=== PATIENT | female | born 1935 | race Hispanic/Latino ===

== ENCOUNTER 2021-02-28 14:15 | Inpatient (IN) | payer MEDICARE ==
--- NOTE | 2021-02-28 14:23 | Emergency Department Report ---
HPI - General Chief Complaint: Abdominal Pain Time Seen by Provider: 02/28/21 14:20 - HPI HPI: This is an 85-year-old female presents to the emergency department from her [facility] with a complaint of a 4-day history of abdominal pain, some abdominal distention, and no bowel movement. The patient has a past medical history of CKD stage III and advanced Alzheimer's dementia. Apparently the patient's family was contacted, they are out of town, and they asked for the patient to be brought to [facility] for evaluation. The patient has avel barba been here previously. Unknown if there were any medications or treatments given prior to arrival. ED Past Medical Hx - Past Medical History Previous Medical History?: Yes Hx Renal Disease: Yes Hx Psychiatric Treatment: Yes Hx Dementia: Yes ED Review of Systems ROS: Stated complaint: ABDOMIANL PAIN Other details as noted in HPI Comment: Unobtainable due to pts medical conditions Physical Exam - Physical Exam Vital Signs: Vital Signs 02/28/21 14:18 Pulse Rate 68 Respiratory 16 Rate Blood Pressure 170/84 [Right] O2 Sat by Pulse 98 Oximetry Physical Exam: GENERAL: The patient is well-developed well-nourished. HENT: Normocephalic. Atraumatic. Patient has moist mucous membranes. EYES: Extraocular motions are intact. NECK: Supple. Trachea is midline. CHEST/LUNGS: Clear to auscultation. There is no respiratory distress noted. HEART/CARDIOVASCULAR: Regular. There is no tachycardia. There is no murmur. ABDOMEN: The middle to lower half of the abdomen is firm, but not rigid, but there is some distention. Patient has normal bowel sounds. SKIN: Skin is warm and dry. NEURO: The patient is mostly nonverbal and confused. MUSCULOSKELETAL: There is no obvious deformity. ED Course Vital Signs 02/28/21 14:18 Pulse Rate 68 Respiratory 16 Rate Blood Pressure 170/84 [Right] O2 Sat by Pulse 98 Oximetry ED Medical Decision Making - Lab Data Result diagrams: 02/28/21 14:23 02/28/21 14:23 Lab Results 02/28/21 02/28/21 02/28/21 Range/Units 14:23 14:23 14:23 WBC 9.9 (4.5-11.0) K/mm3 RBC 3.74 (3.65-5.03) M/mm3 Hgb 12.3 (10.1-14.3) gm/dl Hct 35.8 (30.3-42.9) % MCV 96 (79-97) fl MCH 33 H (28-32) pg MCHC 34 (30-34) % RDW 16.5 H (13.2-15.2) % Plt Count 277 (140-440) K/mm3 Lymph % (Auto) 15.5 (13.4-35.0) % Woods % (Auto) 10.1 H (0.0-7.3) % Eos % (Auto) 1.7 (0.0-4.3) % Baso % (Auto) 0.2 (0.0-1.8) % Lymph # (Auto) 1.5 (1.2-5.4) K/mm3 Woods # (Auto) 1.0 H (0.0-0.8) K/mm3 Eos # (Auto) 0.2 (0.0-0.4) K/mm3 Baso # (Auto) 0.0 (0.0-0.1) K/mm3 Seg Neutrophils % 72.5 H (40.0-70.0) % Seg Neutrophils # 7.2 (1.8-7.7) K/mm3 Sodium 136 L (137-145) mmol/L Potassium 2.3 L* (3.6-5.0) mmol/L Chloride 95.6 L (98-107) mmol/L Carbon Dioxide 25 (22-30) mmol/L Anion Gap 18 mmol/L BUN 40 H (7-17) mg/dL Creatinine 2.7 H (0.6-1.2) mg/dL Estimated GFR 17 ml/min BUN/Creatinine Ratio 15 % Glucose 114 H (65-100) mg/dL Calcium 9.3 (8.4-10.2) mg/dL Magnesium 2.10 (1.7-2.3) mg/dL Total Bilirubin 0.60 (0.1-1.2) mg/dL Direct Bilirubin 0.2 (0-0.2) mg/dL Indirect Bilirubin 0.4 mg/dL AST 21 (5-40) units/L ALT 11 (7-56) units/L Alkaline Phosphatase 93 (35-129) units/L Total Protein 6.6 (6.3-8.2) g/dL Albumin 3.3 L (3.9-5) g/dL Albumin/Globulin Ratio 1.0 % Lipase 47 (13-60) units/L - EKG Data -: EKG Interpreted by Me EKG shows normal: sinus rhythm, axis (Left axis deviation), intervals, QRS complexes (Q waves to the septal leads, LVH), ST-T waves Rate: normal - EKG Data When compared to previous EKG there are: previous EKG unavailable Interpretation: other (Sinus rhythm at 72 bpm, left axis deviation, Q waves to the septal leads, LVH. No ST elevation OH.) - Radiology Data Radiology results: report reviewed, image reviewed interpreted by me: Chest x-ray does not show any acute process. There are no pleural effusions, obvious pneumonia and there is no pneumothorax. No widened mediastinum. Abdominal x-ray shows a large amount of stool with some possible fecal impaction. No obvious signs of obstruction. No free air. CT ABDOMEN AND PELVIS WITHOUT CONTRAST INDICATION / CLINICAL INFORMATION: Abd pain. TECHNIQUE: Axial CT images were obtained through the abdomen and pelvis without IV contrast. All CT scans at this location are performed using CT dose reduction for ALARA by means of automated exposure control. COMPARISON: None available. FINDINGS: LOWER CHEST: Bibasilar atelectasis. LIVER: No significant abnormality. GALLBLADDER: No significant abnormality. BILE DUCTS: No significant abnormality. PANCREAS: No significant abnormality. SPLEEN: No significant abnormality. ADRENALS: No significant abnormality. RIGHT KIDNEY / URETER: No significant abnormality. LEFT KIDNEY / URETER: No significant abnormality. STOMACH / SMALL BOWEL: No significant abnormality. COLON: Large volume colonic stool diffusely with fecal impaction. There is mild associated symmetric rectal thickening distally. APPENDIX: Nonvisualized. PERITONEUM: No free fluid. No free air. No fluid collection. LYMPH NODES: No significant adenopathy. VASCULAR STRUCTURES: Moderate atherosclerotic vascular calcification. URINARY BLADDER: Prominent distention. REPRODUCTIVE ORGANS: No significant abnormality. ADDITIONAL FINDINGS: None. SKELETAL SYSTEM: No significant abnormality. IMPRESSION: 1. Constipation with fecal impaction and superimposed rectal thickening. 2. Prominent bladder distention. - Medical Decision Making This patient, with advanced dementia, was sent in from her personal [facility] for evaluation of abdominal distention and no bowel movement over the past 4 days. The mid to lower abdomen is firm, but not rigid, but there is some distention. Abdominal x-ray shows a large amount of stool and a possible fecal impaction, but no obvious signs of obstruction. Chest x-ray does not show any pneumonia, pleural effusions, pneumothorax, widened mediastinum. Patient had a CT scan of the abdomen and pelvis without contrast that shows a large amount of stool, possible rectal fecal impaction, and a distended bladder. Patient's labs shows significant hyperkalemia with a potassium of 2.3. The patient has been given both oral and IV potassium for replacement. A Herrera catheter was placed for the bladder distention. However, prior to the catheter placement the patient did urinate on the bed in a large quantity, which does appear consistent with some urinary retention, but we do not yet have a urine sample for urinalysis. The patient will be admitted to the hospital for further evaluation and treatment and was accepted for admission by the hospitalist, Dr. William. Critical Care Time: No Critical care attestation.: If time is entered above; I have spent that time in minutes in the direct care of this critically ill patient, excluding procedure time. ED Disposition Clinical Impression: Hypokalemia, Fecal impaction Hypertension Qualifiers: Hypertension type: essential hypertension Qualified Code(s): I10 - Essential (primary) hypertension CKD (chronic kidney disease) Qualifiers: Chronic kidney disease stage: stage 4 (severe) Qualified Code(s): N18.4 - Chronic kidney disease, stage 4 (severe) Disposition: OP ADMIT IP TO THIS HOSP Is pt being admited?: Yes Condition: Fair Time of Disposition: 16:45
[2021-02-28 14:31] LABS: Basophils % (Auto) 0.2 % (0.0-1.8); Eosinophils # (Auto) 0.2 K/mm3 (0.0-0.4); Eosinophils % (Auto) 1.7 % (0.0-4.3); Hematocrit 35.8 % (30.3-42.9); Hemoglobin 12.3 gm/dl (10.1-14.3); Lymphocytes # (Auto) 1.5 K/mm3 (1.2-5.4); Lymphocytes % (Auto) 15.5 % (13.4-35.0); Mean Corpuscular HGB Conc 34 % (30-34); Mean Corpuscular Volume 96 fl (79-97); Monocytes % (Auto) 10.1 % (0.0-7.3); Platelet Count 277 K/mm3 (140-440); Red Blood Count 3.74 M/mm3 (3.65-5.03); Red Cell Distribution Width 16.5 % (13.2-15.2)
[2021-02-28 14:57] LABS: Albumin 3.3 g/dL (3.9-5); Bilirubin,Direct 0.2 mg/dL (0-0.2); Calcium 9.3 mg/dL (8.4-10.2)
--- NOTE | 2021-02-28 15:10 | XRay Report ---
CHEST AND ABDOMINAL SERIES HISTORY: Abdominal pain. Chest one view: Heart size is normal. A pacemaker is in satisfactory position. Negative for mass, inf iltrate or pleural fluid. Two-view abdomen: Gas is scattered throughout the abdomen in a nonobstructive fashion. Overall large volume stool with probable fecal impaction. Previous screw placement right femoral neck. Signer Name: Benjy Rincon MD Signed: 02/28/2021 3:06 PM Workstation Name: [email or web address]
[2021-02-28] MEDS ORDERED: POTASSIUM CHLORIDE ER 20 MEQ TAB PO ONE ×2 (15:11→20:32)
[2021-02-28] MEDS ORDERED: SODIUM CHLORIDE 0.9% 1000 ML 1,000 ML IV ONE (15:11)
--- NOTE | 2021-02-28 16:25 | Cat Scan Report ---
CT ABDOMEN AND PELVIS WITHOUT CONTRAST INDICATION / CLINICAL INFORMATION: Abd pain. TECHNIQUE: Axial CT images were obtained through the abdomen and pelvis without IV contrast. All CT scans at this location are performed using CT dose reduction for ALARA by means of automated exposure control. COMPARISON: None available. FINDINGS: LOWER CHEST: Bibasilar atelectasis. LIVER: No significant abnormality. GALLBLADDER: No significant abnormality. BILE DUCTS: No significant abnormality. PANCREAS: No significant abnormality. SPLEEN: No significant abnormality. ADRENALS: No significant abnormality. RIGHT KIDNEY / URETER: No significant abnormality. LEFT KIDNEY / URETER: No significant abnormality. STOMACH / SMALL BOWEL: No significant abnormality. COLON: Large volume colonic stool diffusely with fecal impaction. There is mild associated symmetric rectal thickening distally. APPENDIX: Nonvisualized. PERITONEUM: No free fluid. No free air. No fluid collection. LYMPH NODES: No significant adenopathy. VASCULAR STRUCTURES: Moderate atherosclerotic vascular calcification. URINARY BLADDER: Prominent distention. REPRODUCTIVE ORGANS: No significant abnormality. ADDITIONAL FINDINGS: None. SKELETAL SYSTEM: No significant abnormality. IMPRESSION: 1. Constipation with fecal impaction and superimposed rectal thickening. 2. Prominent bladder distention. Signer Name: Benjy Rincon MD Signed: 02/28/2021 4:21 PM Workstation Name: [email or web address]
[2021-02-28] MEDS ORDERED: LORazepam 2 MG/ML VIAL IV ONE (16:47)
[2021-02-28] MEDS: POTASSIUM CHLORIDE 10 MEQ 10 MEQ/100 ML BAG IV SCH ×2 (18:06→20:40)
[2021-02-28] MEDS ORDERED: POTASSIUM CHLORIDE 10 MEQ 10 MEQ/100 ML BAG IV ONE (20:31)
[2021-03-01] MEDS ORDERED: METOCLOPRAMIDE 10 MG/2 ML INJ IV PRN (00:32)
[2021-03-01] MEDS ORDERED: MORPHINE 2 MG/1 ML INJ IV PRN (00:32)
[2021-03-01] MEDS ORDERED: ACETAMINOPHEN 325 MG TAB PO PRN (00:32)
[2021-03-01] MEDS ORDERED: ONDANSETRON 4 MG/2 ML INJ IV PRN (00:32)
--- NOTE | 2021-03-01 00:48 | History and Physical Report ---
History of Present Illness Date of examination: 02/28/21 Date of admission: 02/28/21 16:46 Chief complaint: Abdominal pain for 1 day History of present illness: 85-year-old female with past medical history of chronic kidney disease, advanced dementia sent from personal residential for evaluation. Patient has 4-day history of abdominal distention and no bowel movement. In the emergency room patient had a potassium of 2.3 and elevated creatinine consistent with TAISHA/CKD. No fever or chills. No exposure to coronavirus. Review of Systems ROS: Constitutional advanced dementia HEENT no sore throat no post nasal drip no diplopia Neck no neck stiffness no lymph gland enlargement Chest and lungs no shortness of breath cough or wheezing CVS no chest pain no diaphoresis no palpitations GI abdominal pain and no bowel movement for 4 days Genitourinary system no dysuria no flank pain Musculoskeletal system no muscle pains no joint pains [employer] advanced dementia Skin no rash no itching Psychiatric no depression no homicidal or suicidal tendencies Hematologic no lymphedema or bruising Endocrine no polydipsia no polyuria no cold intolerance no heat intolerance Past History Past Medical History: hypertension, other (Advanced dementia, vascular dementia) Past Surgical History: Other (Surgical history not available) Social history: full code, other (Lives in personal residential) Family history: hypertension Medications and Allergies Allergies Allergy/AdvReac Type Severity Reaction Status Date / Time No Known Allergies Allergy Unverified 02/28/21 14:19 Exam - Constitutional Vitals: Temp Pulse Resp BP Pulse Ox 98.6 F 71 20 168/85 97 02/28/21 22:00 02/28/21 22:00 02/28/21 22:00 02/28/21 22:00 02/28/21 22:00 General appearance: Present: no acute distress, well-nourished - EENT Eyes: Present: PERRL ENT: hearing intact, clear oral mucosa - Neck Neck: Present: supple, normal ROM - Respiratory Respiratory effort: normal Respiratory: bilateral: CTA - Cardiovascular Heart rate: 78 Rhythm: regular Heart Sounds: Present: S1 & S2. Absent: rub, click - Extremities Extremities: pulses symmetrical, No edema Peripheral Pulses: within normal limits - Abdominal General gastrointestinal: Present: soft, tender, distended, normal bowel sounds Localized gastrointestinal: tender: diffuse Female genitourinary: Present: normal - Integumentary Integumentary: Present: clear, warm, dry - Musculoskeletal Musculoskeletal: generalized weakness - Psychiatric Psychiatric: other (Advanced dementia) - Neurologic Neurologic: CNII-XII intact, moves all extremities, other (Advanced dementia alert but not oriented to time place and person) - Allied Health Allied health notes reviewed: nursing, case management Results - Labs CBC & Chem 7: 03/01/21 03:21 03/01/21 03:21 Labs: Laboratory Last Values WBC 9.9 K/mm3 (4.5-11.0) 02/28/21 14:23 RBC 3.74 M/mm3 (3.65-5.03) 02/28/21 14:23 Hgb 12.3 gm/dl (10.1-14.3) 02/28/21 14:23 Hct 35.8 % (30.3-42.9) 02/28/21 14:23 MCV 96 fl (79-97) 02/28/21 14:23 MCH 33 pg (28-32) H 02/28/21 14:23 MCHC 34 % (30-34) 02/28/21 14:23 RDW 16.5 % (13.2-15.2) H 02/28/21 14:23 Plt Count 277 K/mm3 (140-440) 02/28/21 14:23 Lymph % (Auto) 15.5 % (13.4-35.0) 02/28/21 14:23 Jennings % (Auto) 10.1 % (0.0-7.3) H 02/28/21 14:23 Eos % (Auto) 1.7 % (0.0-4.3) 02/28/21 14:23 Baso % (Auto) 0.2 % (0.0-1.8) 02/28/21 14:23 Lymph # (Auto) 1.5 K/mm3 (1.2-5.4) 02/28/21 14:23 Jennings # (Auto) 1.0 K/mm3 (0.0-0.8) H 02/28/21 14:23 Eos # (Auto) 0.2 K/mm3 (0.0-0.4) 02/28/21 14:23 Baso # (Auto) 0.0 K/mm3 (0.0-0.1) 02/28/21 14:23 Seg Neutrophils % 72.5 % (40.0-70.0) H 02/28/21 14:23 Seg Neutrophils # 7.2 K/mm3 (1.8-7.7) 02/28/21 14:23 Sodium 136 mmol/L (137-145) L 02/28/21 14:23 Potassium 2.3 mmol/L (3.6-5.0) L* 02/28/21 14:23 Chloride 95.6 mmol/L (98-107) L 02/28/21 14:23 Carbon Dioxide 25 mmol/L (22-30) 02/28/21 14:23 Anion Gap 18 mmol/L 02/28/21 14:23 BUN 40 mg/dL (7-17) H 02/28/21 14:23 Creatinine 2.7 mg/dL (0.6-1.2) H 02/28/21 14:23 Estimated GFR 17 ml/min 02/28/21 14:23 BUN/Creatinine Ratio 15 % 02/28/21 14:23 Glucose 114 mg/dL (65-100) H 02/28/21 14:23 Calcium 9.3 mg/dL (8.4-10.2) 02/28/21 14:23 Magnesium 2.10 mg/dL (1.7-2.3) 02/28/21 14:23 Total Bilirubin 0.60 mg/dL (0.1-1.2) 02/28/21 14:23 Direct Bilirubin 0.2 mg/dL (0-0.2) 02/28/21 14:23 Indirect Bilirubin 0.4 mg/dL 02/28/21 14:23 AST 21 units/L (5-40) 02/28/21 14:23 ALT 11 units/L (7-56) 02/28/21 14:23 Alkaline Phosphatase 93 units/L (35-129) 02/28/21 14:23 Total Protein 6.6 g/dL (6.3-8.2) 02/28/21 14:23 Albumin 3.3 g/dL (3.9-5) L 02/28/21 14:23 Albumin/Globulin Ratio 1.0 % 02/28/21 14:23 Lipase 47 units/L (13-60) 02/28/21 14:23 - Imaging and Cardiology Imaging and Cardiology: Abdomen the pelvis CT Constipation with fecal impaction and superimposed rectal thickening Prominent bladder thickening distention Assessment and Plan Advance Directives: Yes - Patient Problems (1) Hypokalemia Current Visit: Yes Status: Acute Plan to address problem: IV potassium and oral potassium initiated Recheck potassium levels No home medications on the chart Baby diuretic induced hypokalemia (2) TAISHA (acute kidney injury) Current Visit: Yes Status: Acute Plan to address problem: Possible TAISHA superimposed on CKD Renal ultrasound requested Patient initiated on IV fluids Nephrology consult requested (3) Fecal impaction Current Visit: Yes Status: Acute Plan to address problem: Lactulose initiated Enema if necessary (4) Vascular dementia Current Visit: Yes Status: Chronic Qualifiers: Dementia behavioral disturbance: without behavioral disturbance Qualified Code(s): F01.50 - Vascular dementia without behavioral disturbance Plan to address problem: Advanced Supportive care (5) DVT prophylaxis Current Visit: Yes Status: Acute Plan to address problem: On heparin and GI prophylaxis
[2021-03-01] MEDS ORDERED: VALSARTAN 40 MG TAB PO SCH (01:00)
[2021-03-01] MEDS: D5W/0.9% NACL 1,000 ML IV SCH ×2 (01:42→21:56)
[2021-03-01] MEDS: POTASSIUM CHLORIDE 10 MEQ 10 MEQ/100 ML BAG IV SCH ×7 (01:44→16:21)
[2021-03-01] MEDS: POTASSIUM CHLORIDE ER 20 MEQ TAB PO SCH ×3 (01:53→09:47)
[2021-03-01] MEDS: carvediloL 6.25 MG TAB PO SCH ×3 (01:53→20:39)
[2021-03-01] MEDS ORDERED: LACTULOSE 20 GM/30 ML ORAL LIQD PO PRN (02:00)
[2021-03-01 03:13] LABS: Bilirubin,Urine NEG (Negative); Blood,Urine MOD (Negative); Color,Urine Yellow (Yellow); Mucus,Urine FEW /HPF; Protein,Urine <15 mg/dL mg/dL (Negative); WBC,Urine < 1.0 /HPF (0.0-6.0)
[2021-03-01 03:53] LABS: Basophils % (Auto) 0.2 % (0.0-1.8); Eosinophils # (Auto) 0.2 K/mm3 (0.0-0.4); Eosinophils % (Auto) 1.8 % (0.0-4.3); Hemoglobin 10.9 gm/dl (10.1-14.3); Lymphocytes # (Auto) 0.9 K/mm3 (1.2-5.4); Lymphocytes % (Auto) 11.2 % (13.4-35.0); Mean Corpuscular HGB Conc 34 % (30-34); Mean Corpuscular Volume 95 fl (79-97); Monocytes % (Auto) 11.4 % (0.0-7.3); Platelet Count 251 K/mm3 (140-440); Red Blood Count 3.37 M/mm3 (3.65-5.03)
[2021-03-01 04:06] LABS: Albumin 2.9 g/dL (3.9-5); Calcium 8.3 mg/dL (8.4-10.2)
--- NOTE | 2021-03-01 07:52 | Consultation ---
History of Present Illness - Reason for Consult Consult date: 03/01/21 acute renal failure, hypokalemia - History of Present Illness The patient is an 85 YO female with history significant for HTN, CKD and advanced dementia who was sent from personal [facility] to [facility] ED 02/28 for evaluation. Patient was not able to provide any history and there was no family member at the bedside. She has 4-day history of abdominal distention and no bowel movement. No report of feve, chills or exposure to coronavirus. In the emergency room patient had a potassium of 2.3 and elevated creatinine consistent with TAISHA/CKD. Nephrology was consulted for further evaluation. Past History Past Medical History: hypertension, other (Advanced dementia, vascular dementia) Past Surgical History: Other (Surgical history not available) Social history: full code, other (Lives in personal ch[facility]) Family history: hypertension Medications and Allergies Allergies Allergy/AdvReac Type Severity Reaction Status Date / Time No Known Allergies Allergy Unverified 02/28/21 14:19 Active Meds: Active Medications Acetaminophen (Acetaminophen 325 Mg Tab) 650 mg PO Q4H PRN PRN Reason: Pain MILD(1-3)/Fever >100.5/SHETTY Amlodipine Besylate (Amlodipine 10 Mg Tab) 10 mg PO QDAY [facility] Carvedilol (Carvedilol 6.25 Mg Tab) 6.25 mg PO BID@0800,1700 [facility] Last Admin: 03/01/21 01:53 Dose: Not Given Documented by: Famotidine (Famotidine 20 Mg Tab) 20 mg PO QAM [facility] Heparin Sodium (Porcine) (Heparin 5,000 Unit/1 Ml Vial) 5,000 unit SUB-Q Q12HR [facility] Dextrose/Sodium Chloride (D5ns) 1,000 mls @ 100 mls/hr IV DIRECT [facility] Last Admin: 03/01/21 01:42 Dose: 100 mls/hr Documented by: Lactulose (Lactulose 20 Gm/30 Ml Oral Liqd) 30 gm PO QDAY PRN PRN Reason: Constipation Metoclopramide HCl (Metoclopramide 10 Mg/2 Ml Inj) 5 mg IV Q6H PRN PRN Reason: Nausea And Vomiting Morphine Sulfate (Morphine 2 Mg/1 Ml Inj) 2 mg IV Q4H PRN PRN Reason: Pain, Moderate (4-6) Ondansetron HCl (Ondansetron 4 Mg/2 Ml Inj) 4 mg IV Q8H PRN PRN Reason: Nausea And Vomiting Sodium Chloride (Sodium Chloride 0.9% 10 Ml Flush Syringe) 10 ml IV BID PRABHAKAR Sodium Chloride (Sodium Chloride 0.9% 10 Ml Flush Syringe) 10 ml IV PRN PRN PRN Reason: LINE FLUSH Review of Systems ROS unobtainable: due to mental status Exam - Vital Signs Vital signs: Vital Signs Pulse Resp BP Pulse Ox 68 16 170/84 98 02/28/21 14:18 02/28/21 14:18 02/28/21 14:18 02/28/21 14:18 Results - Lab Results 03/01/21 03:21 03/01/21 14:49 Most recent lab results Calcium 8.3 mg/dL (8.4-10.2) L 03/01/21 03:21 Magnesium 2.10 mg/dL (1.7-2.3) 02/28/21 14:23 Assessment and Plan 1. Acute kidney injury: Vasomotor TAISHA in the setting of volume depletion. Renal US negative. Baseline renal function unknown. Continue IV fluids. Monitor renal function. Creatinine level is improving. Avoid nephrotoxic agents. Meds dosage based on GFR. 2. FEN: Hypokalemia, replete K, monitor. Monitor lytes and volume status. 3. Fecal impaction: Lactulose as needed. Per primary. 4. Bladder retention: Follow bladder scan. 5. Vascular dementia: Supportive care. 6. Hypertension. Monitor. Subjective: Patient was seen and examined at the bedside. Examination: General appearance: well-developed, appears stated age, no distress HEENT: ATNC, KULWINDER Neck: trachea midline Respiratory: Clear to Auscultation Heart: regular, S1S2, no murmur Gastrointestinal: soft, normoactive bowel sounds, not tender Integumentary: no obvious rash Neurologic: lethargic, opens eyes, not following any command Ext: no edema
--- NOTE | 2021-03-01 09:11 | Progress Note ---
Assessment and Plan Assessment and plan: --Severe hypokalemia 2.3-2.5 Current Visit: Yes Status: Acute IV potassium and oral potassium initiated For some unknown reason patient did not receive any oral potassium Documented that patient refused IV KCl, and oral KCl[if patient cannot take oral] Continue oral and IV KCl today Repeat potassium level, check magnesium Daily electrolytes -- TAISHA (acute kidney injury) Current Visit: Yes Status: Acute Possible TAISHA superimposed on CKD Vasomotor nephropathy Mild improvement Vigorous IV fluid therapy Monitor renal function, avoid nephrotoxin Nephrology following -- Fecal impaction Current Visit: Yes Status: Acute lactulose initiated, repeat lactulose as needed If no improvement, administer enema --Vascular dementia Current Visit: Yes Status: Chronic Supportive care , check with family her baseline status --Full CODE STATUS; --DC planning per case management; --DVT prophylaxis Current Visit: Yes Status: Acute On heparin and GI prophylaxis Closely monitor the patient and adjust the management as needed 03/01/2021; patient severely constipated mild improvement with lactulose, Repeat x-ray KUB, improvement in constipation however continues to have stool impaction Give another dose of lactulose, if no improvement consider enema History Interval history: I have seen and examined the patient at the bedside Patient is lethargic sleeping, noncommunicative Severe hypokalemia No new events reported by the nursing staff Vital signs reviewed Hospitalist Physical - Constitutional Vitals: Temp Pulse Resp BP Pulse Ox 97.7 F 68 20 146/76 96 03/01/21 04:19 03/01/21 04:20 03/01/21 04:19 03/01/21 04:19 03/01/21 04:20 General appearance: Present: no acute distress, well-nourished - EENT Eyes: Present: PERRL, EOM intact - Neck Neck: Present: supple, normal ROM - Respiratory Respiratory effort: normal Respiratory: bilateral: diminished, negative: rales, rhonchi, wheezing - Cardiovascular Rhythm: regular Heart Sounds: Present: S1 & S2 - Extremities Extremities: no ischemia, normal temperature - Abdominal General gastrointestinal: soft, non-tender, non-distended, normal bowel sounds - Integumentary Integumentary: Present: clear, warm - Psychiatric Psychiatric: other (Noncommunicative) - Neurologic Neurologic: other (Lethargy noncommunicative) Results - Labs CBC & Chem 7: 03/01/21 03:21 03/01/21 14:49 Labs: Laboratory Last Values WBC 8.4 K/mm3 (4.5-11.0) 03/01/21 03:21 RBC 3.37 M/mm3 (3.65-5.03) L 03/01/21 03:21 Hgb 10.9 gm/dl (10.1-14.3) 03/01/21 03:21 Hct 32.0 % (30.3-42.9) 03/01/21 03:21 MCV 95 fl (79-97) 03/01/21 03:21 MCH 32 pg (28-32) 03/01/21 03:21 MCHC 34 % (30-34) 03/01/21 03:21 RDW 17.0 % (13.2-15.2) H 03/01/21 03:21 Plt Count 251 K/mm3 (140-440) 03/01/21 03:21 Lymph % (Auto) 11.2 % (13.4-35.0) L 03/01/21 03:21 [place] % (Auto) 11.4 % (0.0-7.3) H 03/01/21 03:21 Eos % (Auto) 1.8 % (0.0-4.3) 03/01/21 03:21 Baso % (Auto) 0.2 % (0.0-1.8) 03/01/21 03:21 Lymph # (Auto) 0.9 K/mm3 (1.2-5.4) L 03/01/21 03:21 [place] # (Auto) 1.0 K/mm3 (0.0-0.8) H 03/01/21 03:21 Eos # (Auto) 0.2 K/mm3 (0.0-0.4) 03/01/21 03:21 Baso # (Auto) 0.0 K/mm3 (0.0-0.1) 03/01/21 03:21 Seg Neutrophils % 75.4 % (40.0-70.0) H 03/01/21 03:21 Seg Neutrophils # 6.3 K/mm3 (1.8-7.7) 03/01/21 03:21 Sodium 137 mmol/L (137-145) 03/01/21 03:21 Potassium 2.5 mmol/L (3.6-5.0) L* 03/01/21 03:21 Chloride 101.3 mmol/L (98-107) 03/01/21 03:21 Carbon Dioxide 23 mmol/L (22-30) 03/01/21 03:21 Anion Gap 15 mmol/L 03/01/21 03:21 BUN 39 mg/dL (7-17) H 03/01/21 03:21 Creatinine 2.3 mg/dL (0.6-1.2) H 03/01/21 03:21 Estimated GFR 20 ml/min 03/01/21 03:21 BUN/Creatinine Ratio 17 % 03/01/21 03:21 Glucose 107 mg/dL (65-100) H 03/01/21 03:21 Hemoglobin A1c 6.1 % (4-6) H 03/01/21 03:21 Calcium 8.3 mg/dL (8.4-10.2) L 03/01/21 03:21 Magnesium 2.10 mg/dL (1.7-2.3) 02/28/21 14:23 Total Bilirubin 0.50 mg/dL (0.1-1.2) 03/01/21 03:21 Direct Bilirubin 0.2 mg/dL (0-0.2) 02/28/21 14:23 Indirect Bilirubin 0.4 mg/dL 02/28/21 14:23 AST 17 units/L (5-40) 03/01/21 03:21 ALT 11 units/L (7-56) 03/01/21 03:21 Alkaline Phosphatase 86 units/L (35-129) 03/01/21 03:21 Total Protein 5.5 g/dL (6.3-8.2) L 03/01/21 03:21 Albumin 2.9 g/dL (3.9-5) L 03/01/21 03:21 Albumin/Globulin Ratio 1.1 % 03/01/21 03:21 Lipase 47 units/L (13-60) 02/28/21 14:23 Urine Color Yellow (Yellow) 02/28/21 02:50 Urine Turbidity Clear (Clear) 02/28/21 02:50 Urine pH 5.0 (5.0-7.0) 02/28/21 02:50 Ur Specific [place] 1.012 (1.003-1.030) 02/28/21 02:50 Urine Protein <15 mg/dl mg/dL (Negative) 02/28/21 02:50 Urine Glucose (UA) Neg mg/dL (Negative) 02/28/21 02:50 Urine Ketones Neg mg/dL (Negative) 02/28/21 02:50 Urine Blood Mod (Negative) 02/28/21 02:50 Urine Nitrite Neg (Negative) 02/28/21 02:50 Urine Bilirubin Neg (Negative) 02/28/21 02:50 Urine Urobilinogen 2.0 mg/dL (<2.0) 02/28/21 02:50 Ur Leukocyte Esterase Neg (Negative) 02/28/21 02:50 Urine WBC (Auto) < 1.0 /HPF (0.0-6.0) 02/28/21 02:50 Urine RBC (Auto) 15.0 /HPF (0.0-6.0) 02/28/21 02:50 U Epithel Cells (Auto) < 1.0 /HPF (0-13.0) 02/28/21 02:50 Urine Mucus Few /HPF 02/28/21 02:50 Herrera/IV: Voiding Method Indwelling Catheter Active Medications - Current Medications Current Medications: Generic Name Dose Route Start Last Admin Trade Name Freq PRN Reason Stop Dose Admin Acetaminophen 650 mg 03/01/21 00:32 Acetaminophen 325 Mg Tab PO Q4H PRN Pain MILD(1-3)/Fever >100.5/SHETTY Amlodipine Besylate 10 mg 03/01/21 10:00 Amlodipine 10 Mg Tab PO QDAY [facility] Carvedilol 6.25 mg 03/01/21 01:00 03/01/21 01:53 Carvedilol 6.25 Mg Tab PO Not Given BID@0800,1700 [facility] Famotidine 20 mg 03/01/21 10:00 Famotidine 20 Mg Tab PO QAM [facility] Heparin Sodium (Porcine) 5,000 unit 03/01/21 10:00 Heparin 5,000 Unit/1 Ml Vial SUB-Q Q12HR PRABHAKAR Dextrose/Sodium Chloride 1,000 mls @ 100 mls/hr 03/01/21 01:00 03/01/21 01:42 D5ns IV 100 mls/hr DIRECT PRABHAKAR Administration Lactulose 30 gm 03/01/21 02:00 Lactulose 20 Gm/30 Ml Oral Liqd PO QDAY PRN Constipation Metoclopramide HCl 5 mg 03/01/21 00:32 Metoclopramide 10 Mg/2 Ml Inj IV Q6H PRN Nausea And Vomiting Morphine Sulfate 2 mg 03/01/21 00:32 Morphine 2 Mg/1 Ml Inj IV Q4H PRN Pain, Moderate (4-6) Ondansetron HCl 4 mg 03/01/21 00:32 Ondansetron 4 Mg/2 Ml Inj IV Q8H PRN Nausea And Vomiting Sodium Chloride 10 ml 03/01/21 10:00 Sodium Chloride 0.9% 10 Ml Flush Syringe IV BID PRABHAKAR Sodium Chloride 10 ml 03/01/21 00:32 Sodium Chloride 0.9% 10 Ml Flush Syringe IV PRN PRN LINE FLUSH
[2021-03-01] MEDS ORDERED: POTASSIUM CHLORIDE ER 20 MEQ TAB PO NR (09:40)
--- NOTE | 2021-03-01 09:57 | Electrocardiograph Report ---
[facility] Test Date: 2021-02-28 Test Time: 17:16:43 Pat Name: HUNTER LOREDO Department: Room: A391 1 Gender: F Gemologist: GISSELL : 1935 Requested By: HOLA ARIAS Order Number: [id number] Reading MD: Honroio Cuba Measurements Intervals [place] Rate: 72 P: 26 IN: 172 QRS: -22 QRSD: 110 T: 82 QT: 436 QTc: 476 Interpretive Statements Sinus rhythm non specific st-t LVH w/ repol abnormalities, possible ischemia No previous ECG available for comparison Electronically Signed On 03-01-2021 9:56:53 EDT by Honorio Cuba
[2021-03-01] MEDS ORDERED: FAMOTIDINE 20 MG TAB PO SCH (10:00)
--- NOTE | 2021-03-01 10:32 | XRay Report ---
ACUTE ABDOMEN SERIES INDICATION / CLINICAL INFORMATION: f/u constipation. COMPARISON: 02/28/2021 FINDINGS: Considerable dense fecal material is again demonstrated throughout the colon, but there is been some improvement in the dense feces in the left colon and rectum. No free air. No acute disease on the accompanying chest radiograph. IMPRESSION: Persistent but improving constipation and fecal impaction. Signer Name: Yousif Elliott MD Signed: 03/01/2021 10:27 AM Workstation Name: [email or web address]
[2021-03-01] MEDS ORDERED: POTASSIUM CHLORIDE 20 MEQ PACKET FEEDTUBE NR (10:40)
[2021-03-01] MEDS ORDERED: POTASSIUM CHLORIDE 20 MEQ PACKET PO NR (10:40)
[2021-03-01] MEDS: amLODIPine 10 MG TAB PO SCH (11:44)
[2021-03-01] MEDS: HEPARIN 5,000 UNIT/1 ML VIAL SUB-Q SCH ×2 (11:48→21:15)
--- NOTE | 2021-03-01 14:44 | Ultrasound Report ---
ULTRASOUND RENAL INDICATION / CLINICAL INFORMATION: CKD. COMPARISON: CT abdomen/pelvis without contrast 02/28/2021. FINDINGS: RIGHT KIDNEY: Length = 9.2 cm. - Echogenicity: Normal. -Parenchymal Thickness: Mild thinning. - Hydronephrosis: Mild pelviectasis. Extrarenal pelvis on the right. - Cyst / Mass: None - Stones: None seen. LEFT KIDNEY: Length = 10.8 cm. - Echogenicity: Normal. -Parenchymal Thickness: Mild thinning. - Hydronephrosis: None. - Cyst / Mass: None. - Stones: None seen. URINARY BLADDER: Herrera catheter is present within the bladder. FREE FLUID: None. ADDITIONAL FINDINGS: None. IMPRESSION: 1. Mild bilateral parenchymal thinning, ultimately nonspecific but can be seen with chronic medical r enal disease. 2. Mild right pelviectasis. No sonographic evidence of distal obstruction. Scribed by: Xenia Jameson RDMS, RVT Scribed: 03/01/2021 1:36 PM I have reviewed the images, agree with this report, and edited this report as needed. Signer Name: Kwaku Estes MD Signed: 03/01/2021 2:40 PM Workstation Name: [id number]
[2021-03-01] MEDS ORDERED: LACTULOSE 20 GM/30 ML ORAL LIQD PO NR (16:46)
--- NOTE | 2021-03-02 05:05 | Event Note ---
Date: 03/02/21 Patient has bleeding from rectum.pt is noted with BM and blood saturated with the BM. Pt has a DX of fecal impacted. Stat CBC is ordered. Hold a nticoagulation and consult surgery for evaluation
[2021-03-02 06:12] LABS: Basophils % (Auto) 0.5 % (0.0-1.8); Eosinophils # (Auto) 0.3 K/mm3 (0.0-0.4); Eosinophils % (Auto) 3.6 % (0.0-4.3); Hematocrit 26.5 % (30.3-42.9); Hemoglobin 9.2 gm/dl (10.1-14.3); Lymphocytes # (Auto) 1.4 K/mm3 (1.2-5.4); Lymphocytes % (Auto) 17.3 % (13.4-35.0); Mean Corpuscular HGB Conc 35 % (30-34); Mean Corpuscular Volume 96 fl (79-97); Monocytes # (Auto) 0.9 K/mm3 (0.0-0.8); Monocytes % (Auto) 11.6 % (0.0-7.3); Platelet Count 261 K/mm3 (140-440); Red Blood Count 2.76 M/mm3 (3.65-5.03); Red Cell Distribution Width 16.6 % (13.2-15.2)
[2021-03-02 06:35] LABS: Calcium 7.9 mg/dL (8.4-10.2)
[2021-03-02] MEDS ORDERED: POTASSIUM PHOSPHATE 40 MMOL in SODIUM CHLORIDE 0.9% 500 ML 500 ML IV ONE (08:00)
--- NOTE | 2021-03-02 08:51 | Progress Note ---
Assessment and Plan Assessment and plan: --Rectal bleeding; Closely monitor H&H, mild drop in hemoglobin Transfuse as needed GI consult requested, --Hypokalemia/hypophosphatemia; Replenished with K-Phos Monitor electrolytes --Severe hypokalemia 2.3-2.5 Current Visit: Yes Status: Acute IV K-Phos, monitor electrolytes -- TAISHA (acute kidney injury) Current Visit: Yes Status: Acute Possible TAISHA superimposed on CKD Vasomotor nephropathy Mild improvement Vigorous IV fluid therapy Monitor renal function, avoid nephrotoxin Nephrology following -- Fecal impaction Current Visit: Yes Status: Acute lactulose initiated, repeat lactulose as needed If no improvement, administer enema --Vascular dementia Current Visit: Yes Status: Chronic Supportive care , check with family her baseline status --Full CODE STATUS; --DC planning per case management; --DVT prophylaxis Current Visit: Yes Status: Acute On heparin and GI prophylaxis Closely monitor the patient and adjust the management as needed 03/01/2021; patient severely constipated mild improvement with lactulose, Repeat x-ray KUB, improvement in constipation however continues to have stool impaction Give another dose of lactulose, if no improvement consider enema 03/02/2021; patient had an episode of rectal bleeding last night/early this morning Subcu heparin discontinued, H&H mild drop, surgery, GI consult requested Closely monitor, electrolytes replenished History Interval history: Overnight events reviewed Patient had rectal bleeding earlier this morning Mild drop in hemoglobin from 12.3-10.9-9.2 Vital signs reviewed Hospitalist Physical - Constitutional Vitals: Temp Pulse Resp BP Pulse Ox 98.4 F 72 16 165/64 91 03/02/21 04:36 03/02/21 04:36 03/02/21 04:36 03/02/21 04:36 03/02/21 04:36 General appearance: Present: no acute distress, well-nourished - EENT Eyes: Present: PERRL, EOM intact - Neck Neck: Present: supple, normal ROM - Respiratory Respiratory effort: normal Respiratory: bilateral: diminished, negative: rales, rhonchi, wheezing - Cardiovascular Rhythm: regular Heart Sounds: Present: S1 & S2 - Extremities Extremities: no ischemia, No edema - Abdominal General gastrointestinal: soft, non-tender, non-distended, normal bowel sounds - Integumentary Integumentary: Present: clear, warm - Psychiatric Psychiatric: appropriate mood/affect, other (Minimally communicative) - Neurologic Neurologic: moves all extremities Results - Labs CBC & Chem 7: 03/02/21 10:20 03/02/21 05:44 Labs: Laboratory Last Values WBC 8.1 K/mm3 (4.5-11.0) 03/02/21 05:44 RBC 2.76 M/mm3 (3.65-5.03) L 03/02/21 05:44 Hgb 9.2 gm/dl (10.1-14.3) L 03/02/21 05:44 Hct 26.5 % (30.3-42.9) L 03/02/21 05:44 MCV 96 fl (79-97) 03/02/21 05:44 MCH 33 pg (28-32) H 03/02/21 05:44 MCHC 35 % (30-34) H 03/02/21 05:44 RDW 16.6 % (13.2-15.2) H 03/02/21 05:44 Plt Count 261 K/mm3 (140-440) 03/02/21 05:44 Lymph % (Auto) 17.3 % (13.4-35.0) 03/02/21 05:44 [place] % (Auto) 11.6 % (0.0-7.3) H 03/02/21 05:44 Eos % (Auto) 3.6 % (0.0-4.3) 03/02/21 05:44 Baso % (Auto) 0.5 % (0.0-1.8) 03/02/21 05:44 Lymph # (Auto) 1.4 K/mm3 (1.2-5.4) 03/02/21 05:44 [place] # (Auto) 0.9 K/mm3 (0.0-0.8) H 03/02/21 05:44 Eos # (Auto) 0.3 K/mm3 (0.0-0.4) 03/02/21 05:44 Baso # (Auto) 0.0 K/mm3 (0.0-0.1) 03/02/21 05:44 Seg Neutrophils % 67.0 % (40.0-70.0) 03/02/21 05:44 Seg Neutrophils # 5.4 K/mm3 (1.8-7.7) 03/02/21 05:44 Sodium 145 mmol/L (137-145) D 03/02/21 05:44 Potassium 3.1 mmol/L (3.6-5.0) L 03/02/21 05:44 Chloride 111.2 mmol/L (98-107) H 03/02/21 05:44 Carbon Dioxide 26 mmol/L (22-30) 03/02/21 05:44 Anion Gap 11 mmol/L 03/02/21 05:44 BUN 21 mg/dL (7-17) H 03/02/21 05:44 Creatinine 0.9 mg/dL (0.6-1.2) D 03/02/21 05:44 Estimated GFR 60 ml/min 03/02/21 05:44 BUN/Creatinine Ratio 23 % 03/02/21 05:44 Glucose 126 mg/dL (65-100) H 03/02/21 05:44 Hemoglobin A1c 6.1 % (4-6) H 03/01/21 03:21 Calcium 7.9 mg/dL (8.4-10.2) L 03/02/21 05:44 Phosphorus 2.00 mg/dL (2.5-4.5) L D 03/02/21 05:44 Magnesium 1.90 mg/dL (1.7-2.3) 03/02/21 05:44 Total Bilirubin 0.50 mg/dL (0.1-1.2) 03/01/21 03:21 Direct Bilirubin 0.2 mg/dL (0-0.2) 02/28/21 14:23 Indirect Bilirubin 0.4 mg/dL 02/28/21 14:23 AST 17 units/L (5-40) 03/01/21 03:21 ALT 11 units/L (7-56) 03/01/21 03:21 Alkaline Phosphatase 86 units/L (35-129) 03/01/21 03:21 Total Protein 5.5 g/dL (6.3-8.2) L 03/01/21 03:21 Albumin 2.9 g/dL (3.9-5) L 03/01/21 03:21 Albumin/Globulin Ratio 1.1 % 03/01/21 03:21 Lipase 47 units/L (13-60) 02/28/21 14:23 Urine Color Yellow (Yellow) 02/28/21 02:50 Urine Turbidity Clear (Clear) 02/28/21 02:50 Urine pH 5.0 (5.0-7.0) 02/28/21 02:50 Ur Specific [place] 1.012 (1.003-1.030) 02/28/21 02:50 Urine Protein <15 mg/dl mg/dL (Negative) 02/28/21 02:50 Urine Glucose (UA) Neg mg/dL (Negative) 02/28/21 02:50 Urine Ketones Neg mg/dL (Negative) 02/28/21 02:50 Urine Blood Mod (Negative) 02/28/21 02:50 Urine Nitrite Neg (Negative) 02/28/21 02:50 Urine Bilirubin Neg (Negative) 02/28/21 02:50 Urine Urobilinogen 2.0 mg/dL (<2.0) 02/28/21 02:50 Ur Leukocyte Esterase Neg (Negative) 02/28/21 02:50 Urine WBC (Auto) < 1.0 /HPF (0.0-6.0) 02/28/21 02:50 Urine RBC (Auto) 15.0 /HPF (0.0-6.0) 02/28/21 02:50 U Epithel Cells (Auto) < 1.0 /HPF (0-13.0) 02/28/21 02:50 Urine Mucus Few /HPF 02/28/21 02:50 Hererra/IV: Voiding Method Incontinent Active Medications - Current Medications Current Medications: Generic Name Dose Route Start Last Admin Trade Name Freq PRN Reason Stop Dose Admin Acetaminophen 650 mg 03/01/21 00:32 Acetaminophen 325 Mg Tab PO Q4H PRN Pain MILD(1-3)/Fever >100.5/SHETTY Amlodipine Besylate 10 mg 03/01/21 10:00 03/01/21 11:44 Amlodipine 10 Mg Tab PO Not Given QDAY PRABHAKAR Carvedilol 6.25 mg 03/01/21 01:00 03/01/21 20:39 Carvedilol 6.25 Mg Tab PO 6.25 mg BID@0800,1700 PRABHAKAR Administration Dextrose/Sodium Chloride 1,000 mls @ 100 mls/hr 03/01/21 01:00 03/01/21 21:56 D5ns IV 100 mls/hr DIRECT PRABHAKAR Administration Potassium Phosphate 40 mmol/ 513.3333 mls @ 83 mls/hr 03/02/21 08:00 Sodium Chloride IV 03/02/21 14:11 ONCE ONE Lactulose 30 gm 03/01/21 02:00 Lactulose 20 Gm/30 Ml Oral Liqd PO QDAY PRN Constipation Metoclopramide HCl 5 mg 03/01/21 00:32 Metoclopramide 10 Mg/2 Ml Inj IV Q6H PRN Nausea And Vomiting Morphine Sulfate 2 mg 03/01/21 00:32 Morphine 2 Mg/1 Ml Inj IV Q4H PRN Pain, Moderate (4-6) Ondansetron HCl 4 mg 03/01/21 00:32 Ondansetron 4 Mg/2 Ml Inj IV Q8H PRN Nausea And Vomiting Pantoprazole Sodium 40 mg 03/02/21 08:00 Pantoprazole 40 Mg Inj IV BID PRABHAKAR Sodium Chloride 10 ml 03/01/21 10:00 03/01/21 21:16 Sodium Chloride 0.9% 10 Ml Flush Syringe IV 10 ml BID PRABHAKAR Administration Sodium Chloride 10 ml 03/01/21 00:32 Sodium Chloride 0.9% 10 Ml Flush Syringe IV PRN PRN LINE FLUSH
[2021-03-02] MEDS ORDERED: hydrALAZINE 20 MG/1 ML INJ IV PRN (09:18)
--- NOTE | 2021-03-02 09:57 | Progress Note ---
Assessment and Plan 1. Acute kidney injury: Vasomotor TAISHA in the setting of volume depletion. Renal US negative. Continue IV fluids. Monitor renal function. Creatinine level is better. Avoid nephrotoxic agents. Meds dosage based on GFR. 2. FEN: Hypokalemia, replete K, monitor. Replete Phos. Monitor lytes and volume status. 3. Fecal impaction: Lactulose as needed. Per primary. 4. Bladder retention: Follow bladder scan. 5. Vascular dementia: Supportive care. 6. Hypertension. Monitor. Subjective: Patient was seen and examined at the bedside. Examination: General appearance: well-developed, appears stated age, no distress HEENT: ATNC, [place] Neck: trachea midline Respiratory: Clear to Auscultation Heart: regular, S1S2, no murmur Gastrointestinal: soft, normoactive bowel sounds, not tender Integumentary: no obvious rash Neurologic: lethargic, opens eyes, not following any command Ext: no edema Subjective Date of service: 03/02/21 Objective - Vital Signs Vital signs: Vital Signs - 12hr 03/01/21 03/01/21 03/02/21 22:00 22:46 04:36 Temperature 98.5 F 98.4 F Pulse Rate 68 72 Respiratory 18 16 16 Rate Blood Pressure 171/70 165/64 O2 Sat by Pulse 96 95 91 Oximetry - Lab 03/02/21 10:20 03/02/21 05:44 Most recent lab results Calcium 7.9 mg/dL (8.4-10.2) L 03/02/21 05:44 Phosphorus 2.00 mg/dL (2.5-4.5) L D 03/02/21 05:44 Magnesium 1.90 mg/dL (1.7-2.3) 03/02/21 05:44 Medications & Allergies - Medications Allergies/Adverse Reactions: Allergies No Known Allergies Allergy (Unverified 02/28/21 14:19) Active Medications: Generic Name Dose Route Start Last Admin Trade Name Freq PRN Reason Stop Dose Admin Acetaminophen 650 mg 03/01/21 00:32 Acetaminophen 325 Mg Tab PO Q4H PRN Pain MILD(1-3)/Fever >100.5/SHETTY Amlodipine Besylate 10 mg 03/01/21 10:00 03/01/21 11:44 Amlodipine 10 Mg Tab PO Not Given QDAY [facility] Carvedilol 6.25 mg 03/01/21 01:00 03/01/21 20:39 Carvedilol 6.25 Mg Tab PO 6.25 mg BID@0800,1700 PRABHAKAR Administration Hydralazine HCl 10 mg 03/02/21 09:18 Hydralazine 20 Mg/1 Ml Inj IV Q4HR PRN Hypertension Dextrose/Sodium Chloride 1,000 mls @ 100 mls/hr 03/01/21 01:00 03/01/21 21:56 D5ns IV 100 mls/hr DIRECT PRABHAKAR Administration Potassium Phosphate 40 mmol/ 513.3333 mls @ 83 mls/hr 03/02/21 08:00 Sodium Chloride IV 03/02/21 14:11 ONCE ONE Lactulose 30 gm 03/01/21 02:00 Lactulose 20 Gm/30 Ml Oral Liqd PO QDAY PRN Constipation Metoclopramide HCl 5 mg 03/01/21 00:32 Metoclopramide 10 Mg/2 Ml Inj IV Q6H PRN Nausea And Vomiting Morphine Sulfate 2 mg 03/01/21 00:32 Morphine 2 Mg/1 Ml Inj IV Q4H PRN Pain, Moderate (4-6) Ondansetron HCl 4 mg 03/01/21 00:32 Ondansetron 4 Mg/2 Ml Inj IV Q8H PRN Nausea And Vomiting Pantoprazole Sodium 40 mg 03/02/21 08:00 Pantoprazole 40 Mg Inj IV BID PRABHAKAR Sodium Chloride 10 ml 03/01/21 10:00 03/01/21 21:16 Sodium Chloride 0.9% 10 Ml Flush Syringe IV 10 ml BID PRABHAKAR Administration Sodium Chloride 10 ml 03/01/21 00:32 Sodium Chloride 0.9% 10 Ml Flush Syringe IV PRN PRN LINE FLUSH
[2021-03-02 11:50] LABS: Hematocrit 26.7 % (30.3-42.9); Hemoglobin 9.1 gm/dl (10.1-14.3)
[2021-03-02] MEDS ORDERED: GLYCERIN ADULT 2 GRAM RECT SUPP PR NR (12:00)
[2021-03-02] MEDS: amLODIPine 10 MG TAB PO SCH (14:22)
[2021-03-02] MEDS: carvediloL 6.25 MG TAB PO SCH (14:22)
[2021-03-02] MEDS: PANTOPRAZOLE 40 MG INJ IV SCH ×2 (14:22→21:42)
--- NOTE | 2021-03-02 14:44 | Consultation ---
History of Present Illness Consult date: 03/02/21 Chief complaint: fecal impaction - History of present illness History of present illness: 85-year-old female with history of CKD stage III, advanced Alzheimer's who presented to the emergency department from her longterm secondary to 4 days of abdominal pain and no bowel movement. The patient is nonverbal and does not provide a history. All the history is obtained from the chart. The patient was found to have a large stool burden, fecal impaction. She was admitted to the hospital and started on lactulose. She did not improve over the last 24 hours. She was noted to have bright red blood in a bowel movement by nursing and surgery consulted for evaluation. Afebrile. Past History Past Medical History: hypertension, other (Advanced dementia, vascular dementia) Past Surgical History: Other (Surgical history not available) Social history: full code, other (Lives in personal correction) Family history: hypertension Medications and Allergies Allergies Allergy/AdvReac Type Severity Reaction Status Date / Time No Known Allergies Allergy Unverified 02/28/21 14:19 Active Meds: Active Medications Acetaminophen (Acetaminophen 325 Mg Tab) 650 mg PO Q4H PRN PRN Reason: Pain MILD(1-3)/Fever >100.5/SHETTY Amlodipine Besylate (Amlodipine 10 Mg Tab) 10 mg PO QDAY [facility] Last Admin: 03/02/21 14:22 Dose: 10 mg Documented by: Carvedilol (Carvedilol 6.25 Mg Tab) 6.25 mg PO BID@0800,1700 [facility] Last Admin: 03/02/21 14:22 Dose: 6.25 mg Documented by: Glycerin (Glycerin Adult 2 Gram Rect Supp) 1 supp [place] ONCE NR Stop: 03/02/21 15:00 Hydralazine HCl (Hydralazine 20 Mg/1 Ml Inj) 10 mg IV Q4HR PRN PRN Reason: Hypertension Dextrose/Sodium Chloride (D5ns) 1,000 mls @ 100 mls/hr IV DIRECT [facility] Last Admin: 03/01/21 21:56 Dose: 100 mls/hr Documented by: Lactulose (Lactulose 20 Gm/30 Ml Oral Liqd) 30 gm PO QDAY PRN PRN Reason: Constipation Metoclopramide HCl (Metoclopramide 10 Mg/2 Ml Inj) 5 mg IV Q6H PRN PRN Reason: Nausea And Vomiting Morphine Sulfate (Morphine 2 Mg/1 Ml Inj) 2 mg IV Q4H PRN PRN Reason: Pain, Moderate (4-6) Ondansetron HCl (Ondansetron 4 Mg/2 Ml Inj) 4 mg IV Q8H PRN PRN Reason: Nausea And Vomiting Pantoprazole Sodium (Pantoprazole 40 Mg Inj) 40 mg IV BID [facility] Last Admin: 03/02/21 14:22 Dose: 40 mg Documented by: Sodium Chloride (Sodium Chloride 0.9% 10 Ml Flush Syringe) 10 ml IV BID [facility] Last Admin: 03/02/21 14:22 Dose: 10 ml Documented by: Sodium Chloride (Sodium Chloride 0.9% 10 Ml Flush Syringe) 10 ml IV PRN PRN PRN Reason: LINE FLUSH Review of Systems ROS unobtainable: due to mental status Exam Vital Signs Pulse Resp BP Pulse Ox 68 16 170/84 98 02/28/21 14:18 02/28/21 14:18 02/28/21 14:18 02/28/21 14:18 Narrative exam: Gen.: Arousable but does not follow commands, nonverbal. Remains with eyes closed. No apparent distress ENT: Trachea midline. No lymphadenopathy. CV: S1, S2 present Respiratory: No audible wheezes Abdomen: Soft, nondistended, mildly distended. No rebound, rigidity, guarding Rectal: With patient's RN in the room as implementation project manager: Exam demonstrates large volume solid brown stool in the rectal vault. Manual disimpaction performed but stool burden is too large. Small amount of bright red blood from rectum during disimpaction. Extremities: Contracted Results - Labs 03/02/21 10:20 03/02/21 05:44 Abnormal lab results 03/02/21 03/02/21 03/02/21 Range/Units 05:44 05:44 10:20 RBC 2.76 L (3.65-5.03) M/mm3 Hgb 9.2 L 9.1 L (10.1-14.3) gm/dl Hct 26.5 L 26.7 L (30.3-42.9) % MCH 33 H (28-32) pg MCHC 35 H (30-34) % RDW 16.6 H (13.2-15.2) % [place] % (Auto) 11.6 H (0.0-7.3) % [place] # (Auto) 0.9 H (0.0-0.8) K/mm3 Potassium 3.1 L (3.6-5.0) mmol/L Chloride 111.2 H (98-107) mmol/L BUN 21 H (7-17) mg/dL Glucose 126 H (65-100) mg/dL Calcium 7.9 L (8.4-10.2) mg/dL Phosphorus 2.00 L D (2.5-4.5) mg/dL Diabetes panel 03/01/21 03/02/21 Range/Units 14:49 05:44 Sodium 145 D (137-145) mmol/L Potassium 3.8 D 3.1 L (3.6-5.0) mmol/L Chloride 111.2 H (98-107) mmol/L Carbon Dioxide 26 (22-30) mmol/L BUN 21 H (7-17) mg/dL Creatinine 0.9 D (0.6-1.2) mg/dL Glucose 126 H (65-100) mg/dL Calcium 7.9 L (8.4-10.2) mg/dL Calcium panel 03/02/21 Range/Units 05:44 Calcium 7.9 L (8.4-10.2) mg/dL Phosphorus 2.00 L D (2.5-4.5) mg/dL Pituitary panel 03/01/21 03/02/21 Range/Units 14:49 05:44 Sodium 145 D (137-145) mmol/L Potassium 3.8 D 3.1 L (3.6-5.0) mmol/L Chloride 111.2 H (98-107) mmol/L Carbon Dioxide 26 (22-30) mmol/L BUN 21 H (7-17) mg/dL Creatinine 0.9 D (0.6-1.2) mg/dL Glucose 126 H (65-100) mg/dL Calcium 7.9 L (8.4-10.2) mg/dL Adrenal panel 03/01/21 03/02/21 Range/Units 14:49 05:44 Sodium 145 D (137-145) mmol/L Potassium 3.8 D 3.1 L (3.6-5.0) mmol/L Chloride 111.2 H (98-107) mmol/L Carbon Dioxide 26 (22-30) mmol/L BUN 21 H (7-17) mg/dL Creatinine 0.9 D (0.6-1.2) mg/dL Glucose 126 H (65-100) mg/dL Calcium 7.9 L (8.4-10.2) mg/dL - Imaging Abdominal x-ray: report reviewed, image reviewed CT scan - abdomen: report reviewed, image reviewed CT scan - pelvis: report reviewed, image reviewed Assessment and Plan 85 yo F with 1. rectal bleeding 2/2 extensive fecal impaction 2. TAISHA 3. Alzheimer's dementia Pt stable. Rectal bleeding is minimal. It is likely directly related to irritation of the colon and rectum from massive fecal impaction Plan: 1. bowel regimen - PO colace BID, magnesium citrate, dulcolax IL daily, and enemas 2. monitor H/H - appears stable. Downtrend most likely from IVF resus citation/dilution 3. If unable to tolerate PO bowel regimen, strongly recommend placement of dobhoff to administer medications 4. Replace lytes 5. No acute surgical intervention at this time. Thank you, please call with questions.
[2021-03-02] MEDS ORDERED: MAGNESIUM CITRATE 300 ML ORAL LIQD PO SCH (15:00)
--- NOTE | 2021-03-02 16:43 | Gastroenterology Consultation ---
History of Present Illness - Reason for Consult Consult date: 03/02/21 Rectal bleeding Requesting physician: HOLA ARIAS - History of Present Illness Patient cannot provide a history therefore I tried calling patient's daughter Jahaira approximate number in the chart however phone rang and no answer History obtained from chart 85-year-old female with history of CKD stage III, advanced Alzheimer's who presented to the emergency department from her fpc secondary to constipation. Had fecal impaction started medications and had bright red blood therefore GI is consulted CT scan prior to bowel movement did show rectal thickening and fecal impaction Hemoglobin trending down Obtained/updated/reviewed patient's current medications Past History Past Medical History: hypertension, other (Advanced dementia, vascular dementia) Past Surgical History: Other (Surgical history not available) Social history: full code, other (Lives in personal intermediate) Family history: hypertension Medications and Allergies Allergies Allergy/AdvReac Type Severity Reaction Status Date / Time No Known Allergies Allergy Unverified 02/28/21 14:19 Active Meds: Active Medications Acetaminophen (Acetaminophen 325 Mg Tab) 650 mg PO Q4H PRN PRN Reason: Pain MILD(1-3)/Fever >100.5/SHETTY Amlodipine Besylate (Amlodipine 10 Mg Tab) 10 mg PO QDAY [facility] Last Admin: 03/02/21 14:22 Dose: 10 mg Documented by: Bisacodyl (Bisacodyl 10 Mg Rect Supp) 10 mg [place] QDAY [facility] Carvedilol (Carvedilol 6.25 Mg Tab) 6.25 mg PO BID@0800,1700 [facility] Last Admin: 03/02/21 14:22 Dose: 6.25 mg Documented by: Docusate Sodium (Docusate Sodium 100 Mg/10 Ml Oral Liqd) 100 mg PO BID [facility] Hydralazine HCl (Hydralazine 20 Mg/1 Ml Inj) 10 mg IV Q4HR PRN PRN Reason: Hypertension Dextrose/Sodium Chloride (D5ns) 1,000 mls @ 100 mls/hr IV DIRECT [facility] Last Admin: 03/01/21 21:56 Dose: 100 mls/hr Documented by: Magnesium Citrate (Magnesium Citrate 300 Ml Oral Liqd) 300 ml PO QDAY [facility] Metoclopramide HCl (Metoclopramide 10 Mg/2 Ml Inj) 5 mg IV Q6H PRN PRN Reason: Nausea And Vomiting Morphine Sulfate (Morphine 2 Mg/1 Ml Inj) 2 mg IV Q4H PRN PRN Reason: Pain, Moderate (4-6) Ondansetron HCl (Ondansetron 4 Mg/2 Ml Inj) 4 mg IV Q8H PRN PRN Reason: Nausea And Vomiting Pantoprazole Sodium (Pantoprazole 40 Mg Inj) 40 mg IV BID [facility] Last Admin: 03/02/21 14:22 Dose: 40 mg Documented by: Sodium Chloride (Sodium Chloride 0.9% 10 Ml Flush Syringe) 10 ml IV BID [facility] Last Admin: 03/02/21 14:22 Dose: 10 ml Documented by: Sodium Chloride (Sodium Chloride 0.9% 10 Ml Flush Syringe) 10 ml IV PRN PRN PRN Reason: LINE FLUSH Review of Systems - Review of Systems ROS unobtainable: due to mental status Exam - Constitutional Vital Signs: Temp Pulse Resp BP Pulse Ox 98.4 F 72 16 165/64 91 03/02/21 04:36 03/02/21 04:36 03/02/21 04:36 03/02/21 04:36 03/02/21 04:36 General appearance: no acute distress - EENT Eyes: EOM intact - Respiratory Respiratory effort: normal - Gastrointestinal General gastrointestinal: Present: soft, tender - Integumentary Integumentary: Present: dry - Neurologic Neurological: disoriented - Labs CBC & Chem 7: 03/02/21 10:20 03/02/21 05:44 Lab Results: Laboratory Results - last 24 hr 03/02/21 03/02/21 03/02/21 05:44 05:44 10:20 WBC 8.1 RBC 2.76 L Hgb 9.2 L 9.1 L Hct 26.5 L 26.7 L MCV 96 MCH 33 H MCHC 35 H RDW 16.6 H Plt Count 261 Lymph % (Auto) 17.3 [place] % (Auto) 11.6 H Eos % (Auto) 3.6 Baso % (Auto) 0.5 Lymph # (Auto) 1.4 [place] # (Auto) 0.9 H Eos # (Auto) 0.3 Baso # (Auto) 0.0 Seg Neutrophils % 67.0 Seg Neutrophils # 5.4 Sodium 145 D Potassium 3.1 L Chloride 111.2 H Carbon Dioxide 26 Anion Gap 11 BUN 21 H Creatinine 0.9 D Estimated GFR 60 BUN/Creatinine Ratio 23 Glucose 126 H Calcium 7.9 L Phosphorus 2.00 L D Magnesium 1.90 Assessment and Plan Regarding rectal bleeding fecal impaction and rectal thickening seen on CAT scan highest on the differential diagnosis is stercoral colitis due to fecal impaction However also in the differential diagnosis would be rectal mass Of note patient's hemoglobin has trended down However, she lacks capacity for consent and also its highly unlikely that she would drink the colon prep, and would require NGT placement for prep. I tried calling the daughter but no one answered. Additionally, if this is a rectal mass would need to discuss with family how aggressive the patient would wish to be to determine if colonoscopy would alter plan of care In meantime continue to trend hgb - Patient Problems (1) Rectal bleeding Current Visit: Yes Status: Acute (2) Anemia Current Visit: Yes Status: Acute (3) Abnormal CT scan, pelvis Current Visit: Yes Status: Acute (4) Fecal impaction Current Visit: Yes Status: Acute
--- NOTE | 2021-03-02 18:03 | Event Note ---
Date: 03/02/21 I called patient's son Mr. Mauri Gallagher at [phone] to discuss about patient's condition treatment plan unable to reach as nobody picked up the phone left a message to call back to discuss about the patient care I will try to call him again tomorrow
[2021-03-02] MEDS: D5W/0.9% NACL 1,000 ML IV SCH (19:25)
[2021-03-02] MEDS: DOCUSATE SODIUM 100 MG/10 ML ORAL LIQD PO SCH ×2 (21:42→22:03)
[2021-03-02 23:02] LABS: Hematocrit 25.4 % (30.3-42.9); Hemoglobin 8.8 gm/dl (10.1-14.3)
--- NOTE | 2021-03-03 08:56 | Gastroenterology Progress Note ---
Assessment and Plan Regarding rectal bleeding fecal impaction and rectal thickening seen on CAT scan, highest on the differential diagnosis is stercoral colitis due to fecal impaction, also in the differential diagnosis would be rectal mass AM labs not yet available patient lacks capacity for consent and also it is highly unlikely that she would drink the colon prep, and would require being restrained and NGT placement for prep which would be very traumatic for the patient We failed to contact the family despite multiple attempts Therefore from GI perspective recommend trend hemoglobin As long as stable patient can be discharged with outpatient follow-up accompanied by her family members who are healthcare proxy who can make decisions for her to have a discussion about risk benefits and alternatives regarding any GI interventions If this patient has recurrent overt hemorrhage then will need to be addressed, though given lack of ability to obtain consent our interventions would be limited except in severe life-threatening circumstances No further recommendations at this time, therefore GI will sign off please call back if we can be of any further assistance - Patient Problems (1) Rectal bleeding Current Visit: Yes Status: Acute (2) Anemia Current Visit: Yes Status: Acute (3) Abnormal CT scan, pelvis Current Visit: Yes Status: Acute (4) Fecal impaction Current Visit: Yes Status: Acute Subjective Date of service: 03/03/21 Principal diagnosis: GI bleed Interval history: Despite multiple attempts yesterday we were unsuccessful in contacting family Patient unable to provide history due to mental status, however she is resting in bed comfortably no acute distress and per notes no bleeding overnight A.m. hemoglobin pending Objective - Constitutional Vitals: Temp Pulse Resp BP Pulse Ox 98.4 F 67 16 167/73 99 03/03/21 04:25 03/03/21 04:25 03/03/21 04:25 03/03/21 04:25 03/03/21 04:25 General appearance: no acute distress - Respiratory Respiratory effort: normal - Integumentary Integumentary: Present: dry - Labs CBC & Chem 7: 03/02/21 22:45 03/02/21 05:44 Labs: Laboratory Results - last 24 hr 03/02/21 03/02/21 10:20 22:45 Hgb 9.1 L 8.8 L Hct 26.7 L 25.4 L
[2021-03-03] MEDS: PANTOPRAZOLE 40 MG INJ IV SCH ×2 (09:54→23:30)
[2021-03-03] MEDS: amLODIPine 10 MG TAB PO SCH (09:54)
[2021-03-03] MEDS: MAGNESIUM HYDROXIDE (MOM) ORAL LIQD UDC PO SCH (09:54)
[2021-03-03] MEDS: DOCUSATE SODIUM 100 MG/10 ML ORAL LIQD PO SCH ×3 (09:54→23:29)
[2021-03-03] MEDS: carvediloL 6.25 MG TAB PO SCH (09:54)
[2021-03-03 09:56] LABS: Hematocrit 23.4 % (30.3-42.9); Hemoglobin 8.5 gm/dl (10.1-14.3)
--- NOTE | 2021-03-03 10:16 | Progress Note ---
Assessment and Plan Assessment and plan: I called patient's son Mr. Mauri Gallagher at [phone] to discuss about patient's condition treatment plan unable to reach as nobody picked up the phone left a message to call back to discuss about the patient care I will try to reach out to him tomorrow again --Hypokalemia/hypophosphatemia; Current Visit: Yes Status: Acute Replenished with K-Phos Monitor electrolytes --Rectal bleeding; no new episodes Current Visit: Yes Status: Acute Closely monitor H&H, mild drop in hemoglobin H&H stable, GI evaluated the patient, GI could not contact family In spite of multiple attempts As patient's H&H is stable and no new episodes of bleeding Stable from GI standpoint for discharge Further evaluation as outpatient -- TAISHA (acute kidney injury) Current Visit: Yes Status: Acute possible TAISHA superimposed on CKD on admission Vasomotor nephropathy, resolved Monitor renal function, avoid nephrotoxin Nephrology following -- Fecal impaction Current Visit: Yes Status: Acute stool softeners, suppositories Improvement, continue bowel regimen --Vascular dementia Current Visit: Yes Status: Chronic Supportive care , check with family her baseline status . --Full CODE STATUS; --DC planning per case management; Patient is from assisted living Recommend PT and OT evaluation For discharge needs --DVT prophylaxis Current Visit: Yes Status: Acute On heparin and GI prophylaxis Closely monitor the patient and adjust the management as needed 03/01/2021; patient severely constipated mild improvement with lactulose, Repeat x-ray KUB, improvement in constipation however continues to have stool impaction Give another dose of lactulose, if no improvement consider enema 03/02/2021; patient had an episode of rectal bleeding last night/early this morning Subcu heparin discontinued, H&H mild drop, surgery, GI consult requested Closely monitor, electrolytes replenished 03/03/2021; patient more alert and awake No new episodes of of rectal bleeding Vital signs and H&H stable GI cleared for discharge Follow PT OT evaluation Possible discharge in 1 to 2 days if stable History Interval history: I have seen and examined the patient at the bedside this morning Patient's chart and medications reviewed, patient is sleeping easily awakens No new episodes of rectal bleeding. H&H and vital signs are stable Continues to have constipation, on bowel regimen Vital signs noted Hospitalist Physical - Constitutional Vitals: Temp Pulse Resp BP Pulse Ox 98.4 F 67 16 167/73 99 03/03/21 04:25 03/03/21 09:54 03/03/21 04:25 03/03/21 09:54 03/03/21 04:25 General appearance: Present: no acute distress, well-nourished - EENT Eyes: Present: PERRL, EOM intact - Neck Neck: Present: supple, normal ROM - Respiratory Respiratory effort: normal Respiratory: bilateral: diminished, negative: rales, rhonchi, wheezing - Cardiovascular Rhythm: regular Heart Sounds: Present: S1 & S2 - Extremities Extremities: no ischemia, No edema - Abdominal General gastrointestinal: soft, non-tender, non-distended, normal bowel sounds - Integumentary Integumentary: Present: clear, warm - Psychiatric Psychiatric: other (Confused minimally communicative) - Neurologic Neurologic: moves all extremities, other (Confused at times) Results - Labs CBC & Chem 7: 03/03/21 08:44 03/03/21 08:44 Labs: Laboratory Last Values WBC 8.1 K/mm3 (4.5-11.0) 03/02/21 05:44 RBC 2.76 M/mm3 (3.65-5.03) L 03/02/21 05:44 Hgb 8.5 gm/dl (10.1-14.3) L 03/03/21 08:44 Hct 23.4 % (30.3-42.9) L 03/03/21 08:44 MCV 96 fl (79-97) 03/02/21 05:44 MCH 33 pg (28-32) H 03/02/21 05:44 MCHC 35 % (30-34) H 03/02/21 05:44 RDW 16.6 % (13.2-15.2) H 03/02/21 05:44 Plt Count 261 K/mm3 (140-440) 03/02/21 05:44 Lymph % (Auto) 17.3 % (13.4-35.0) 03/02/21 05:44 [place] % (Auto) 11.6 % (0.0-7.3) H 03/02/21 05:44 Eos % (Auto) 3.6 % (0.0-4.3) 03/02/21 05:44 Baso % (Auto) 0.5 % (0.0-1.8) 03/02/21 05:44 Lymph # (Auto) 1.4 K/mm3 (1.2-5.4) 03/02/21 05:44 [place] # (Auto) 0.9 K/mm3 (0.0-0.8) H 03/02/21 05:44 Eos # (Auto) 0.3 K/mm3 (0.0-0.4) 03/02/21 05:44 Baso # (Auto) 0.0 K/mm3 (0.0-0.1) 03/02/21 05:44 Seg Neutrophils % 67.0 % (40.0-70.0) 03/02/21 05:44 Seg Neutrophils # 5.4 K/mm3 (1.8-7.7) 03/02/21 05:44 Sodium 145 mmol/L (137-145) D 03/02/21 05:44 Potassium 3.1 mmol/L (3.6-5.0) L 03/02/21 05:44 Chloride 111.2 mmol/L (98-107) H 03/02/21 05:44 Carbon Dioxide 26 mmol/L (22-30) 03/02/21 05:44 Anion Gap 11 mmol/L 03/02/21 05:44 BUN 21 mg/dL (7-17) H 03/02/21 05:44 Creatinine 0.9 mg/dL (0.6-1.2) D 03/02/21 05:44 Estimated GFR 60 ml/min 03/02/21 05:44 BUN/Creatinine Ratio 23 % 03/02/21 05:44 Glucose 126 mg/dL (65-100) H 03/02/21 05:44 Hemoglobin A1c 6.1 % (4-6) H 03/01/21 03:21 Calcium 7.9 mg/dL (8.4-10.2) L 03/02/21 05:44 Phosphorus 2.00 mg/dL (2.5-4.5) L D 03/02/21 05:44 Magnesium 1.90 mg/dL (1.7-2.3) 03/02/21 05:44 Total Bilirubin 0.50 mg/dL (0.1-1.2) 03/01/21 03:21 Direct Bilirubin 0.2 mg/dL (0-0.2) 02/28/21 14:23 Indirect Bilirubin 0.4 mg/dL 02/28/21 14:23 AST 17 units/L (5-40) 03/01/21 03:21 ALT 11 units/L (7-56) 03/01/21 03:21 Alkaline Phosphatase 86 units/L (35-129) 03/01/21 03:21 Total Protein 5.5 g/dL (6.3-8.2) L 03/01/21 03:21 Albumin 2.9 g/dL (3.9-5) L 03/01/21 03:21 Albumin/Globulin Ratio 1.1 % 03/01/21 03:21 Lipase 47 units/L (13-60) 02/28/21 14:23 Urine Color Yellow (Yellow) 02/28/21 02:50 Urine Turbidity Clear (Clear) 02/28/21 02:50 Urine pH 5.0 (5.0-7.0) 02/28/21 02:50 Ur Specific [place] 1.012 (1.003-1.030) 02/28/21 02:50 Urine Protein <15 mg/dl mg/dL (Negative) 02/28/21 02:50 Urine Glucose (UA) Neg mg/dL (Negative) 02/28/21 02:50 Urine Ketones Neg mg/dL (Negative) 02/28/21 02:50 Urine Blood Mod (Negative) 02/28/21 02:50 Urine Nitrite Neg (Negative) 02/28/21 02:50 Urine Bilirubin Neg (Negative) 02/28/21 02:50 Urine Urobilinogen 2.0 mg/dL (<2.0) 02/28/21 02:50 Ur Leukocyte Esterase Neg (Negative) 02/28/21 02:50 Urine WBC (Auto) < 1.0 /HPF (0.0-6.0) 02/28/21 02:50 Urine RBC (Auto) 15.0 /HPF (0.0-6.0) 02/28/21 02:50 U Epithel Cells (Auto) < 1.0 /HPF (0-13.0) 02/28/21 02:50 Urine Mucus Few /HPF 02/28/21 02:50 [place]/IV: Voiding Method Indwelling Catheter Active Medications - Current Medications Current Medications: Generic Name Dose Route Start Last Admin Trade Name Freq PRN Reason Stop Dose Admin Acetaminophen 650 mg 03/01/21 00:32 Acetaminophen 325 Mg Tab PO Q4H PRN Pain MILD(1-3)/Fever >100.5/SHETTY Amlodipine Besylate 10 mg 03/01/21 10:00 03/03/21 09:54 Amlodipine 10 Mg Tab PO 10 mg QDAY PRABHAKAR Administration Bisacodyl 10 mg 03/03/21 10:00 03/03/21 09:54 Bisacodyl 10 Mg Rect Supp IL 10 mg QDAY PRABHAKAR Administration Carvedilol 6.25 mg 03/01/21 01:00 03/03/21 09:54 Carvedilol 6.25 Mg Tab PO 6.25 mg BID@0800,1700 PRABHAKAR Administration Docusate Sodium 100 mg 03/02/21 15:00 03/02/21 22:03 Docusate Sodium 100 Mg/10 Ml Oral Liqd PO 100 mg BID PRABHAKAR Administration Hydralazine HCl 10 mg 03/02/21 09:18 Hydralazine 20 Mg/1 Ml Inj IV Q4HR PRN Hypertension Dextrose/Sodium Chloride 1,000 mls @ 100 mls/hr 03/01/21 01:00 03/02/21 19:25 D5ns IV 100 mls/hr DIRECT PRABHAKAR Administration Magnesium Hydroxide 30 ml 03/03/21 10:00 03/03/21 09:54 Magnesium Hydroxide (Mom) Oral Liqd Udc PO 30 ml QDAY PRABHAKAR Administration Metoclopramide HCl 5 mg 03/01/21 00:32 Metoclopramide 10 Mg/2 Ml Inj IV Q6H PRN Nausea And Vomiting Morphine Sulfate 2 mg 03/01/21 00:32 Morphine 2 Mg/1 Ml Inj IV Q4H PRN Pain, Moderate (4-6) Ondansetron HCl 4 mg 03/01/21 00:32 Ondansetron 4 Mg/2 Ml Inj IV Q8H PRN Nausea And Vomiting Pantoprazole Sodium 40 mg 03/02/21 08:00 03/03/21 09:54 Pantoprazole 40 Mg Inj IV 40 mg BID PRABHAKAR Administration Sodium Chloride 10 ml 03/01/21 10:00 03/03/21 09:55 Sodium Chloride 0.9% 10 Ml Flush Syringe IV 10 ml BID PRABHAKAR Administration Sodium Chloride 10 ml 06/30/21 00:32 Sodium Chloride 0.9% 10 Ml Flush Syringe IV PRN PRN LINE FLUSH Nutrition/Malnutrition Assess - Dietary Evaluation Nutrition/Malnutrition Findings: Nutrition Notes Start: 03/02/21 13:27 Freq: Status: Active Protocol: Document 03/02/21 13:27 (Rec: 03/02/21 13:31 [id number]) Nutrition Notes Need for Assessment generated from: automation architect,MST Initial or Follow up Brief Note Current Diagnosis Acute Kidney Injury Other Pertinent Diagnosis fecal impaction, rectal bleed, dementia Current Diet NPO Height 5 ft 3 in Weight 64.5 kg [place] Body Weight (kg) 52.27 BMI 25.2 Weight Status Appropriate Subjective/Other Information RN screen for MST. Unable to wake pt at time of visit. Observed 0% of breakfast eaten . #1 Nutrition Diagnosis Predicted suboptimal energy intake Etiology advanced age As Evidenced by Signs and Symptoms pt ate 0% of breakfast Is patient on ventilator? No Is Patient Ambulatory and/or Out of Bed No [facility] [phone] Calculation Used for Recommendations [facility] Additional Notes Protein: (1-1.2g/kg) 65-77g Fluid: 1 ml/kcal Nutrition Intervention Change Diet Order: Continue Follow-Up By: 03/03/21 Additional Comments FU for assessment
[2021-03-03 10:19] LABS: Blood Urea Nitrogen 14 mg/dL (7-17); Calcium 8.4 mg/dL (8.4-10.2); Hemolysis Index 3
[2021-03-03 10:21] LABS: BUN/Creatinine Ratio 23
--- NOTE | 2021-03-03 13:17 | Progress Note ---
Assessment and Plan 1. Acute kidney injury: Vasomotor TAISHA in the setting of volume depletion. Renal US negative. Continue IV fluids. Monitor renal function. Creatinine level is better. Avoid nephrotoxic agents. Meds dosage based on GFR. 2. FEN: Hypokalemia, K level is better, monitor. Replete Phos. Monitor lytes and volume status. 3. Fecal impaction: Lactulose as needed. Per primary. 4. Bladder retention: Follow bladder scan. 5. Vascular dementia: Supportive care. 6. Hypertension. Monitor. Subjective: Patient was seen and examined at the bedside. Examination: General appearance: well-developed, appears stated age, no distress HEENT: ATNC, KUL[place] Neck: trachea midline Respiratory: Clear to Auscultation Heart: regular, S1S2, no murmur Gastrointestinal: soft, normoactive bowel sounds, not tender Integumentary: no obvious rash Neurologic: lethargic, opens eyes, not following any command Ext: no edema Subjective Date of service: 03/03/21 Principal diagnosis: GI bleed Objective - Vital Signs Vital signs: Vital Signs - 12hr 03/03/21 03/03/21 04:25 09:54 Temperature 98.4 F Pulse Rate 67 67 Respiratory 16 Rate Blood Pressure 167/73 167/73 O2 Sat by Pulse 99 Oximetry - Lab 03/03/21 18:42 03/04/21 04:57 Most recent lab results Calcium 8.4 mg/dL (8.4-10.2) 03/03/21 08:44 Phosphorus 2.00 mg/dL (2.5-4.5) L 03/03/21 08:44 Magnesium 2.10 mg/dL (1.7-2.3) 03/03/21 08:44 Medications & Allergies - Medications Allergies/Adverse Reactions: Allergies No Known Allergies Allergy (Unverified 02/28/21 14:19) Home Medications: Home Medications Medication Instructions Recorded Confirmed Last Taken Type No Known Home Medications [No 03/04/21 03/04/21 Unknown History Reported Home Medications] Active Medications: Generic Name Dose Route Start Last Admin Trade Name Freq PRN Reason Stop Dose Admin Acetaminophen 650 mg 03/01/21 00:32 Acetaminophen 325 Mg Tab PO Q4H PRN Pain MILD(1-3)/Fever >100.5/SHETTY Amlodipine Besylate 10 mg 03/01/21 10:00 03/03/21 09:54 Amlodipine 10 Mg Tab PO 10 mg QDAY PRABHAKAR Administration Bisacodyl 10 mg 03/03/21 10:00 03/03/21 09:54 Bisacodyl 10 Mg Rect Supp [place] 10 mg QDAY PRABHAKAR Administration Carvedilol 6.25 mg 03/01/21 01:00 03/03/21 09:54 Carvedilol 6.25 Mg Tab PO 6.25 mg BID@0800,1700 PRABHAKAR Administration Docusate Sodium 100 mg 03/02/21 15:00 03/02/21 22:03 Docusate Sodium 100 Mg/10 Ml Oral Liqd PO 100 mg BID PRABHAKAR Administration Hydralazine HCl 10 mg 03/02/21 09:18 Hydralazine 20 Mg/1 Ml Inj IV Q4HR PRN Hypertension Dextrose/Sodium Chloride 1,000 mls @ 100 mls/hr 03/01/21 01:00 03/02/21 19:25 D5ns IV 100 mls/hr DIRECT PRABHAKAR Administration Magnesium Hydroxide 30 ml 03/03/21 10:00 03/03/21 09:54 Magnesium Hydroxide (Mom) Oral Liqd Udc PO 30 ml QDAY PRABHAKAR Administration Metoclopramide HCl 5 mg 03/01/21 00:32 Metoclopramide 10 Mg/2 Ml Inj IV Q6H PRN Nausea And Vomiting Morphine Sulfate 2 mg 03/01/21 00:32 Morphine 2 Mg/1 Ml Inj IV Q4H PRN Pain, Moderate (4-6) Ondansetron HCl 4 mg 03/01/21 00:32 Ondansetron 4 Mg/2 Ml Inj IV Q8H PRN Nausea And Vomiting Pantoprazole Sodium 40 mg 03/02/21 08:00 03/03/21 09:54 Pantoprazole 40 Mg Inj IV 40 mg BID PRABHAKAR Administration Sodium Chloride 10 ml 03/01/21 10:00 03/03/21 09:55 Sodium Chloride 0.9% 10 Ml Flush Syringe IV 10 ml BID PRABHAKAR Administration Sodium Chloride 10 ml 03/01/21 00:32 Sodium Chloride 0.9% 10 Ml Flush Syringe IV PRN PRN LINE FLUSH
[2021-03-03] MEDS ORDERED: POTASSIUM PHOSPHATE 30 MMOL in SODIUM CHLORIDE 0.9% 500 ML 500 ML IV ONE (14:18)
[2021-03-03 19:33] LABS: Hematocrit 23.5 % (30.3-42.9); Hemoglobin 8.2 gm/dl (10.1-14.3)
[2021-03-03] MEDS: DEXTROSE 5% IN WATER 1,000 ML IV SCH (23:43)
[2021-03-04 06:07] LABS: Blood Urea Nitrogen 13 mg/dL (7-17); Calcium 8.1 mg/dL (8.4-10.2); Hemolysis Index 0
[2021-03-04 06:15] LABS: BUN/Creatinine Ratio 19
--- NOTE | 2021-03-04 08:59 | Progress Note ---
Assessment and Plan Assessment and plan: I called patient's son Mr. Mauri Gallagher at [phone] to discuss about patient's condition treatment plan unable to reach as nobody picked up the phone left a message to call back to discuss about the patient care I will try to reach out to him tomorrow again --Hypokalemia/hypophosphatemia; Current Visit: Yes Status: Acute Normal range today, monitor electrolytes --Rectal bleeding; no new episodes Current Visit: Yes Status: Acute GI evaluated the patient, could not contact family In spite of multiple attempts Patient's H&H low stable, no new episodes of GI bleeding GI cleared for discharge , Further evaluation as outpatient -- TAISHA (acute kidney injury)/resolved Current Visit: Yes Status: Acute possible TAISHA superimposed on CKD on admission Vasomotor nephropathy, resolved Monitor renal function, avoid nephrotoxin Nephrology following -- Fecal impaction/improved Current Visit: Yes Status: Acute stool softeners, suppositories continue bowel regimen --Vascular dementia Current Visit: Yes Status: Chronic Supportive care , check with family her baseline status . --Full CODE STATUS; --DC planning per case management; Patient is from assisted living Recommend PT and OT evaluation For discharge needs Pending PT OT evaluation and recommendations --DVT prophylaxis Current Visit: Yes Status: Acute On heparin and GI prophylaxis Closely monitor the patient and adjust the management as needed 03/01/2021; patient severely constipated mild improvement with lactulose, Repeat x-ray KUB, improvement in constipation however continues to have stool impaction Give another dose of lactulose, if no improvement consider enema 03/02/2021; patient had an episode of rectal bleeding last night/early this morning Subcu heparin discontinued, H&H mild drop, surgery, GI consult requested Closely monitor, electrolytes replenished 03/03/2021; patient more alert and awake No new episodes of of rectal bleeding Vital signs and H&H stable GI cleared for discharge Follow PT OT evaluation Possible discharge in 1 to 2 days if stable 03/04/2021; patient feels slightly better H&H stable no GI bleeding, Awaiting PT and OT evaluation and recommendations Patient is from assisted living DC planning per case management History Interval history: I seen and examined the patient at the bedside Patient's chart and medications reviewed Patient is alert and awake confused No new episodes of rectal bleeding Patient had bowel movement this morning Vital signs noted Hospitalist Physical - Constitutional Vitals: Temp Pulse Resp BP Pulse Ox 98.7 F 60 16 154/71 94 03/04/21 05:35 03/04/21 05:35 03/04/21 05:35 03/04/21 05:35 03/04/21 05:35 General appearance: Present: no acute distress, well-nourished, other (Confused at times) - EENT Eyes: Present: PERRL, EOM intact - Neck Neck: Present: supple, normal ROM - Respiratory Respiratory effort: normal Respiratory: bilateral: diminished, negative: rales, rhonchi, wheezing - Cardiovascular Rhythm: regular Heart Sounds: Present: S1 & S2 - Extremities Extremities: no ischemia, No edema - Abdominal General gastrointestinal: soft, non-tender, non-distended, normal bowel sounds - Integumentary Integumentary: Present: clear, warm - Psychiatric Psychiatric: appropriate mood/affect, other (Minimally communicative) - Neurologic Neurologic: moves all extremities Results - Labs CBC & Chem 7: 03/03/21 18:42 03/04/21 04:57 Labs: Laboratory Last Values WBC 8.1 K/mm3 (4.5-11.0) 03/02/21 05:44 RBC 2.76 M/mm3 (3.65-5.03) L 03/02/21 05:44 Hgb 8.2 gm/dl (10.1-14.3) L 03/03/21 18:42 Hct 23.5 % (30.3-42.9) L 03/03/21 18:42 MCV 96 fl (79-97) 03/02/21 05:44 MCH 33 pg (28-32) H 03/02/21 05:44 MCHC 35 % (30-34) H 03/02/21 05:44 RDW 16.6 % (13.2-15.2) H 03/02/21 05:44 Plt Count 261 K/mm3 (140-440) 03/02/21 05:44 Lymph % (Auto) 17.3 % (13.4-35.0) 03/02/21 05:44 [place] % (Auto) 11.6 % (0.0-7.3) H 03/02/21 05:44 Eos % (Auto) 3.6 % (0.0-4.3) 03/02/21 05:44 Baso % (Auto) 0.5 % (0.0-1.8) 03/02/21 05:44 Lymph # (Auto) 1.4 K/mm3 (1.2-5.4) 03/02/21 05:44 [place] # (Auto) 0.9 K/mm3 (0.0-0.8) H 03/02/21 05:44 Eos # (Auto) 0.3 K/mm3 (0.0-0.4) 03/02/21 05:44 Baso # (Auto) 0.0 K/mm3 (0.0-0.1) 03/02/21 05:44 Seg Neutrophils % 67.0 % (40.0-70.0) 03/02/21 05:44 Seg Neutrophils # 5.4 K/mm3 (1.8-7.7) 03/02/21 05:44 Sodium 146 mmol/L (137-145) H 03/04/21 04:57 Potassium 4.0 mmol/L (3.6-5.0) 03/04/21 04:57 Chloride 111.8 mmol/L (98-107) H 03/04/21 04:57 Carbon Dioxide 28 mmol/L (22-30) 03/04/21 04:57 Anion Gap 10 mmol/L 03/04/21 04:57 BUN 13 mg/dL (7-17) 03/04/21 04:57 Creatinine 0.7 mg/dL (0.6-1.2) 03/04/21 04:57 Estimated GFR > 60 ml/min 03/04/21 04:57 BUN/Creatinine Ratio 19 % 03/04/21 04:57 Glucose 102 mg/dL (65-100) H 03/04/21 04:57 Hemoglobin A1c 6.1 % (4-6) H 03/01/21 03:21 Calcium 8.1 mg/dL (8.4-10.2) L 03/04/21 04:57 Phosphorus 3.30 mg/dL (2.5-4.5) D 03/04/21 04:57 Magnesium 2.10 mg/dL (1.7-2.3) 03/03/21 08:44 Total Bilirubin 0.50 mg/dL (0.1-1.2) 03/01/21 03:21 Direct Bilirubin 0.2 mg/dL (0-0.2) 02/28/21 14:23 Indirect Bilirubin 0.4 mg/dL 02/28/21 14:23 AST 17 units/L (5-40) 03/01/21 03:21 ALT 11 units/L (7-56) 03/01/21 03:21 Alkaline Phosphatase 86 units/L (35-129) 03/01/21 03:21 Total Protein 5.5 g/dL (6.3-8.2) L 03/01/21 03:21 Albumin 2.9 g/dL (3.9-5) L 03/01/21 03:21 Albumin/Globulin Ratio 1.1 % 03/01/21 03:21 Lipase 47 units/L (13-60) 02/28/21 14:23 Urine Color Yellow (Yellow) 02/28/21 02:50 Urine Turbidity Clear (Clear) 02/28/21 02:50 Urine pH 5.0 (5.0-7.0) 02/28/21 02:50 Ur Specific [place] 1.012 (1.003-1.030) 02/28/21 02:50 Urine Protein <15 mg/dl mg/dL (Negative) 02/28/21 02:50 Urine Glucose (UA) Neg mg/dL (Negative) 02/28/21 02:50 Urine Ketones Neg mg/dL (Negative) 02/28/21 02:50 Urine Blood Mod (Negative) 02/28/21 02:50 Urine Nitrite Neg (Negative) 02/28/21 02:50 Urine Bilirubin Neg (Negative) 02/28/21 02:50 Urine Urobilinogen 2.0 mg/dL (<2.0) 02/28/21 02:50 Ur Leukocyte Esterase Neg (Negative) 02/28/21 02:50 Urine WBC (Auto) < 1.0 /HPF (0.0-6.0) 02/28/21 02:50 Urine RBC (Auto) 15.0 /HPF (0.0-6.0) 02/28/21 02:50 U Epithel Cells (Auto) < 1.0 /HPF (0-13.0) 02/28/21 02:50 Urine Mucus Few /HPF 02/28/21 02:50 Herrera/IV: Voiding Method Indwelling Catheter Active Medications - Current Medications Current Medications: Generic Name Dose Route Start Last Admin Trade Name Freq PRN Reason Stop Dose Admin Acetaminophen 650 mg 03/01/21 00:32 Acetaminophen 325 Mg Tab PO Q4H PRN Pain MILD(1-3)/Fever >100.5/SHETTY Amlodipine Besylate 10 mg 03/01/21 10:00 03/03/21 09:54 Amlodipine 10 Mg Tab PO 10 mg QDAY PRABHAKAR Administration Bisacodyl 10 mg 03/03/21 10:00 03/03/21 09:54 Bisacodyl 10 Mg Rect Supp [place] 10 mg QDAY PRABHAKAR Administration Carvedilol 6.25 mg 03/01/21 01:00 03/03/21 09:54 Carvedilol 6.25 Mg Tab PO 6.25 mg BID@0800,1700 PRABHAKAR Administration Docusate Sodium 100 mg 03/02/21 15:00 03/03/21 23:29 Docusate Sodium 100 Mg/10 Ml Oral Liqd PO 100 mg BID PRABHAKAR Administration Hydralazine HCl 10 mg 03/02/21 09:18 Hydralazine 20 Mg/1 Ml Inj IV Q4HR PRN Hypertension Dextrose 1,000 mls @ 50 mls/hr 03/03/21 14:00 03/03/21 23:43 D5w IV 50 mls/hr DIRECT PRABHAKAR Administration Magnesium Hydroxide 30 ml 03/03/21 10:00 03/03/21 09:54 Magnesium Hydroxide (Mom) Oral Liqd Udc PO 30 ml QDAY PRABHAKAR Administration Metoclopramide HCl 5 mg 03/01/21 00:32 Metoclopramide 10 Mg/2 Ml Inj IV Q6H PRN Nausea And Vomiting Morphine Sulfate 2 mg 03/01/21 00:32 03/03/21 23:32 Morphine 2 Mg/1 Ml Inj IV 2 mg Q4H PRN Administration Pain, Moderate (4-6) Ondansetron HCl 4 mg 03/01/21 00:32 Ondansetron 4 Mg/2 Ml Inj IV Q8H PRN Nausea And Vomiting Pantoprazole Sodium 40 mg 03/02/21 08:00 03/03/21 23:30 Pantoprazole 40 Mg Inj IV 40 mg BID PRABHAKAR Administration Sodium Chloride 10 ml 03/01/21 10:00 03/03/21 23:30 Sodium Chloride 0.9% 10 Ml Flush Syringe IV 10 ml BID PRABHAKAR Administration Sodium Chloride 10 ml 03/01/21 00:32 Sodium Chloride 0.9% 10 Ml Flush Syringe IV PRN PRN LINE FLUSH Nutrition/Malnutrition Assess - Dietary Evaluation Nutrition/Malnutrition Findings: Nutrition Notes Start: 03/02/21 13:27 Freq: Status: Active Protocol: Document 03/03/21 12:11 JUVENTINO (Rec: 03/03/21 12:14 JUVENTINO [id number]) Nutrition Notes Initial or Follow up Brief Note Current Diagnosis Acute Kidney Injury Other Pertinent Diagnosis fecal impaction, rectal bleed, dementia Current Diet NPO Subjective/Other Information FU for assessment. Pt NPO. Pt confused and unable to assess. Per chart, pt has dobhoff order due to not taking medications. Waiting for family consent for plan of care. Nutrition Intervention Follow-Up By: 03/06/21 Additional Comments FU for plan of care and diet advancment or TF consult
[2021-03-04] MEDS: carvediloL 6.25 MG TAB PO SCH ×2 (10:20→22:23)
[2021-03-04] MEDS: MAGNESIUM HYDROXIDE (MOM) ORAL LIQD UDC PO SCH (10:20)
[2021-03-04] MEDS: PANTOPRAZOLE 40 MG INJ IV SCH ×2 (10:20→22:16)
[2021-03-04] MEDS: DOCUSATE SODIUM 100 MG/10 ML ORAL LIQD PO SCH ×2 (10:22→22:16)
--- NOTE | 2021-03-04 11:13 | Progress Note ---
Assessment and Plan 1. Acute kidney injury: Vasomotor TAISHA in the setting of volume depletion. Renal US negative. Continue IV fluids. Monitor renal function. Creatinine level is better. Avoid nephrotoxic agents. Meds dosage based on GFR. 2. FEN: Hypernatremia, improving. Hypokalemia, K level is better, monitor. Monitor lytes and volume status. 3. Fecal impaction: Lactulose as needed. Per primary. 4. Bladder retention: Follow bladder scan. 5. Vascular dementia: Supportive care. 6. Hypertension. Improved, monitor. Subjective: Patient was not examined today. However the examination findings from other providers noted. The current and previous medical records are reviewed in detail as are laboratory and imaging data reviewed when appropriate. Medications being given are also reviewed. In addition the case has been discussed with the attending hospitalist and the nurse when needed. New renal recommendations as above. Examination: Subjective Date of service: 03/04/21 Principal diagnosis: GI bleed Objective - Vital Signs Vital signs: Vital Signs - 12hr 03/04/21 05:35 Temperature 98.7 F Pulse Rate 60 Respiratory 16 Rate Blood Pressure 154/71 O2 Sat by Pulse 94 Oximetry - Lab 03/03/21 18:42 03/04/21 04:57 Most recent lab results Calcium 8.1 mg/dL (8.4-10.2) L 03/04/21 04:57 Phosphorus 3.30 mg/dL (2.5-4.5) D 03/04/21 04:57 Magnesium 2.10 mg/dL (1.7-2.3) 03/03/21 08:44 Medications & Allergies - Medications Allergies/Adverse Reactions: Allergies No Known Allergies Allergy (Unverified 02/28/21 14:19) Home Medications: Home Medications Medication Instructions Recorded Confirmed Last Taken Type No Known Home Medications [No 03/04/21 03/04/21 Unknown History Reported Home Medications] Active Medications: Generic Name Dose Route Start Last Admin Trade Name Freq PRN Reason Stop Dose Admin Acetaminophen 650 mg 03/01/21 00:32 Acetaminophen 325 Mg Tab PO Q4H PRN Pain MILD(1-3)/Fever >100.5/SHETTY Amlodipine Besylate 10 mg 03/01/21 10:00 03/03/21 09:54 Amlodipine 10 Mg Tab PO 10 mg QDAY PRABHAKAR Administration Bisacodyl 10 mg 03/03/21 10:00 03/04/21 10:40 Bisacodyl 10 Mg Rect Supp [place] Not Given QDAY PRABHAKAR Carvedilol 6.25 mg 03/01/21 01:00 03/04/21 10:20 Carvedilol 6.25 Mg Tab PO 6.25 mg BID@0800,1700 PRABHAKAR Administration Docusate Sodium 100 mg 03/02/21 15:00 03/04/21 10:22 Docusate Sodium 100 Mg/10 Ml Oral Liqd PO 100 mg BID PRABHAKAR Administration Hydralazine HCl 10 mg 03/02/21 09:18 Hydralazine 20 Mg/1 Ml Inj IV Q4HR PRN Hypertension Dextrose 1,000 mls @ 50 mls/hr 03/03/21 14:00 03/03/21 23:43 D5w IV 50 mls/hr DIRECT PRABHAKAR Administration Magnesium Hydroxide 30 ml 03/03/21 10:00 03/04/21 10:20 Magnesium Hydroxide (Mom) Oral Liqd Udc PO 30 ml QDAY PRABHAKAR Administration Metoclopramide HCl 5 mg 03/01/21 00:32 Metoclopramide 10 Mg/2 Ml Inj IV Q6H PRN Nausea And Vomiting Morphine Sulfate 2 mg 03/01/21 00:32 03/03/21 23:32 Morphine 2 Mg/1 Ml Inj IV 2 mg Q4H PRN Administration Pain, Moderate (4-6) Ondansetron HCl 4 mg 03/01/21 00:32 Ondansetron 4 Mg/2 Ml Inj IV Q8H PRN Nausea And Vomiting Pantoprazole Sodium 40 mg 03/02/21 08:00 03/04/21 10:20 Pantoprazole 40 Mg Inj IV 40 mg BID PRABHAKAR Administration Sodium Chloride 10 ml 03/01/21 10:00 03/04/21 10:21 Sodium Chloride 0.9% 10 Ml Flush Syringe IV 10 ml BID PRABHAKAR Administration Sodium Chloride 10 ml 03/01/21 00:32 Sodium Chloride 0.9% 10 Ml Flush Syringe IV PRN PRN LINE FLUSH
[2021-03-04] MEDS: amLODIPine 10 MG TAB PO SCH (14:19)
--- NOTE | 2021-03-05 08:02 | Progress Note ---
Assessment and Plan Assessment and plan: I called patient's son Mr. Mauri Gallagher on 03/02/2021 at [phone] to discuss about patient's condition treatment plan unable to reach as nobody picked up the phone left a message to call back to discuss about the patient care I will try to reach out to him again --Rectal bleeding; no new episodes Current Visit: Yes Status: Acute GI evaluated the patient, could not contact family In spite of multiple attempts Patient's H&H low stable, no new episodes of GI bleeding GI cleared for discharge , Further evaluation as outpatient -- TAISHA (acute kidney injury)/resolved Current Visit: Yes Status: Acute Vasomotor nephropathy, now resolved Monitor renal function, avoid nephrotoxin Nephrology following --Hypokalemia/hypophosphatemia; Current Visit: Yes Status: Acute Replenished, monitor electrolytes -- Fecal impaction/improved Current Visit: Yes Status: Acute stool softeners, suppositories continue bowel regimen --Vascular dementia Current Visit: Yes Status: Chronic Supportive care , check with family her baseline status . --Full CODE STATUS; --DC planning per case management; Patient is from assisted living Recommend PT and OT evaluation For discharge needs Pending PT OT evaluation and recommendations --DVT prophylaxis Current Visit: Yes Status: Acute On heparin and GI prophylaxis Closely monitor the patient and adjust the management as needed 03/01/2021; patient severely constipated mild improvement with lactulose, Repeat x-ray KUB, improvement in constipation however continues to have stool impaction Give another dose of lactulose, if no improvement consider enema 03/02/2021; patient had an episode of rectal bleeding last night/early this morning Subcu heparin discontinued, H&H mild drop, surgery, GI consult requested Closely monitor, electrolytes replenished 03/03/2021; patient more alert and awake No new episodes of of rectal bleeding Vital signs and H&H stable GI cleared for discharge Follow PT OT evaluation Possible discharge in 1 to 2 days if stable 03/04/2021; patient feels slightly better H&H stable no GI bleeding, Awaiting PT and OT evaluation and recommendations Patient is from assisted living DC planning per case management 03/05/2021; patient is alert and awake confused Not in acute distress, follow PT OT evaluation recommendation Patient is from assisted living, DC planning per case management We will try to reach out to the family today again History Interval history: I have seen and examined the patient at the bedside this morning Patient's chart and medications reviewed Patient is more alert and awake not in acute distress However is confused Vital signs noted No new overnight events reported by the nursing Hospitalist Physical - Constitutional Vitals: Temp Pulse Resp BP Pulse Ox 98.2 F 60 20 161/78 99 03/05/21 05:51 03/05/21 05:51 03/05/21 05:51 03/05/21 05:51 03/05/21 05:51 General appearance: Present: no acute distress, well-nourished, other (Confused at times) - EENT Eyes: Present: PERRL, EOM intact - Neck Neck: Present: supple, normal ROM - Respiratory Respiratory effort: normal Respiratory: bilateral: diminished, negative: rales, rhonchi, wheezing - Cardiovascular Rhythm: regular Heart Sounds: Present: S1 & S2 - Extremities Extremities: no ischemia, No edema - Abdominal General gastrointestinal: soft, non-tender, non-distended, normal bowel sounds - Integumentary Integumentary: Present: clear, warm - Psychiatric Psychiatric: cooperative, other (Confused) - Neurologic Neurologic: moves all extremities Results - Labs CBC & Chem 7: 03/03/21 18:42 03/04/21 04:57 Labs: Laboratory Last Values WBC 8.1 K/mm3 (4.5-11.0) 03/02/21 05:44 RBC 2.76 M/mm3 (3.65-5.03) L 03/02/21 05:44 Hgb 8.2 gm/dl (10.1-14.3) L 03/03/21 18:42 Hct 23.5 % (30.3-42.9) L 03/03/21 18:42 MCV 96 fl (79-97) 03/02/21 05:44 MCH 33 pg (28-32) H 03/02/21 05:44 MCHC 35 % (30-34) H 03/02/21 05:44 RDW 16.6 % (13.2-15.2) H 03/02/21 05:44 Plt Count 261 K/mm3 (140-440) 03/02/21 05:44 Lymph % (Auto) 17.3 % (13.4-35.0) 03/02/21 05:44 [place] % (Auto) 11.6 % (0.0-7.3) H 03/02/21 05:44 Eos % (Auto) 3.6 % (0.0-4.3) 03/02/21 05:44 Baso % (Auto) 0.5 % (0.0-1.8) 03/02/21 05:44 Lymph # (Auto) 1.4 K/mm3 (1.2-5.4) 03/02/21 05:44 [place] # (Auto) 0.9 K/mm3 (0.0-0.8) H 03/02/21 05:44 Eos # (Auto) 0.3 K/mm3 (0.0-0.4) 03/02/21 05:44 Baso # (Auto) 0.0 K/mm3 (0.0-0.1) 03/02/21 05:44 Seg Neutrophils % 67.0 % (40.0-70.0) 03/02/21 05:44 Seg Neutrophils # 5.4 K/mm3 (1.8-7.7) 03/02/21 05:44 Sodium 146 mmol/L (137-145) H 03/04/21 04:57 Potassium 4.0 mmol/L (3.6-5.0) 03/04/21 04:57 Chloride 111.8 mmol/L (98-107) H 03/04/21 04:57 Carbon Dioxide 28 mmol/L (22-30) 03/04/21 04:57 Anion Gap 10 mmol/L 03/04/21 04:57 BUN 13 mg/dL (7-17) 03/04/21 04:57 Creatinine 0.7 mg/dL (0.6-1.2) 03/04/21 04:57 Estimated GFR > 60 ml/min 03/04/21 04:57 BUN/Creatinine Ratio 19 % 03/04/21 04:57 Glucose 102 mg/dL (65-100) H 03/04/21 04:57 Hemoglobin A1c 6.1 % (4-6) H 03/01/21 03:21 Calcium 8.1 mg/dL (8.4-10.2) L 03/04/21 04:57 Phosphorus 3.30 mg/dL (2.5-4.5) D 03/04/21 04:57 Magnesium 2.10 mg/dL (1.7-2.3) 03/03/21 08:44 Total Bilirubin 0.50 mg/dL (0.1-1.2) 03/01/21 03:21 Direct Bilirubin 0.2 mg/dL (0-0.2) 02/28/21 14:23 Indirect Bilirubin 0.4 mg/dL 02/28/21 14:23 AST 17 units/L (5-40) 03/01/21 03:21 ALT 11 units/L (7-56) 03/01/21 03:21 Alkaline Phosphatase 86 units/L (35-129) 03/01/21 03:21 Total Protein 5.5 g/dL (6.3-8.2) L 03/01/21 03:21 Albumin 2.9 g/dL (3.9-5) L 03/01/21 03:21 Albumin/Globulin Ratio 1.1 % 03/01/21 03:21 Lipase 47 units/L (13-60) 02/28/21 14:23 Urine Color Yellow (Yellow) 02/28/21 02:50 Urine Turbidity Clear (Clear) 02/28/21 02:50 Urine pH 5.0 (5.0-7.0) 02/28/21 02:50 Ur Specific [place] 1.012 (1.003-1.030) 02/28/21 02:50 Urine Protein <15 mg/dl mg/dL (Negative) 02/28/21 02:50 Urine Glucose (UA) Neg mg/dL (Negative) 02/28/21 02:50 Urine Ketones Neg mg/dL (Negative) 02/28/21 02:50 Urine Blood Mod (Negative) 02/28/21 02:50 Urine Nitrite Neg (Negative) 02/28/21 02:50 Urine Bilirubin Neg (Negative) 02/28/21 02:50 Urine Urobilinogen 2.0 mg/dL (<2.0) 02/28/21 02:50 Ur Leukocyte Esterase Neg (Negative) 02/28/21 02:50 Urine WBC (Auto) < 1.0 /HPF (0.0-6.0) 02/28/21 02:50 Urine RBC (Auto) 15.0 /HPF (0.0-6.0) 02/28/21 02:50 U Epithel Cells (Auto) < 1.0 /HPF (0-13.0) 02/28/21 02:50 Urine Mucus Few /HPF 02/28/21 02:50 Herrera/IV: Voiding Method Self-Catheterization Active Medications - Current Medications Current Medications: Generic Name Dose Route Start Last Admin Trade Name Freq PRN Reason Stop Dose Admin Acetaminophen 650 mg 03/01/21 00:32 Acetaminophen 325 Mg Tab PO Q4H PRN Pain MILD(1-3)/Fever >100.5/SHETTY Amlodipine Besylate 10 mg 03/01/21 10:00 03/04/21 14:19 Amlodipine 10 Mg Tab PO 10 mg QDAY PRABHAKAR Administration Bisacodyl 10 mg 03/03/21 10:00 03/04/21 10:40 Bisacodyl 10 Mg Rect Supp CO Not Given QDAY PRABHAKAR Carvedilol 6.25 mg 03/01/21 01:00 03/04/21 22:23 Carvedilol 6.25 Mg Tab PO 6.25 mg BID@0800,1700 PRABHAKAR Administration Docusate Sodium 100 mg 03/02/21 15:00 03/04/21 22:16 Docusate Sodium 100 Mg/10 Ml Oral Liqd PO 100 mg BID PRABHAKAR Administration Hydralazine HCl 10 mg 03/02/21 09:18 Hydralazine 20 Mg/1 Ml Inj IV Q4HR PRN Hypertension Dextrose 1,000 mls @ 50 mls/hr 03/03/21 14:00 03/03/21 23:43 D5w IV 50 mls/hr DIRECT PRABHAKAR Administration Magnesium Hydroxide 30 ml 03/03/21 10:00 03/04/21 10:20 Magnesium Hydroxide (Mom) Oral Liqd Udc PO 30 ml QDAY PRABHAKAR Administration Metoclopramide HCl 5 mg 03/01/21 00:32 Metoclopramide 10 Mg/2 Ml Inj IV Q6H PRN Nausea And Vomiting Morphine Sulfate 2 mg 03/01/21 00:32 03/03/21 23:32 Morphine 2 Mg/1 Ml Inj IV 2 mg Q4H PRN Administration Pain, Moderate (4-6) Ondansetron HCl 4 mg 03/01/21 00:32 Ondansetron 4 Mg/2 Ml Inj IV Q8H PRN Nausea And Vomiting Pantoprazole Sodium 40 mg 03/02/21 08:00 03/04/21 22:16 Pantoprazole 40 Mg Inj IV 40 mg BID PRABHAKAR Administration Sodium Chloride 10 ml 03/01/21 10:00 03/04/21 22:17 Sodium Chloride 0.9% 10 Ml Flush Syringe IV 10 ml BID PRABHAKAR Administration Sodium Chloride 10 ml 03/01/21 00:32 Sodium Chloride 0.9% 10 Ml Flush Syringe IV PRN PRN LINE FLUSH Nutrition/Malnutrition Assess - Dietary Evaluation Nutrition/Malnutrition Findings: Nutrition Notes Start: 03/02/21 13:27 Freq: Status: Active Protocol: Document 03/03/21 12:11 (Rec: 03/03/21 12:14 [email or web address]) Nutrition Notes Initial or Follow up Brief Note Current Diagnosis Acute Kidney Injury Other Pertinent Diagnosis fecal impaction, rectal bleed, dementia Current Diet NPO Subjective/Other Information FU for assessment. Pt NPO. Pt confused and unable to assess. Per chart, pt has dobhoff order due to not taking medications. Waiting for family consent for plan of care. Nutrition Intervention Follow-Up By: 03/06/21 Additional Comments FU for plan of care and diet advancment or TF consult
[2021-03-05] MEDS: amLODIPine 10 MG TAB PO SCH (09:31)
[2021-03-05] MEDS: PANTOPRAZOLE 40 MG INJ IV SCH ×2 (09:31→21:20)
[2021-03-05] MEDS: carvediloL 6.25 MG TAB PO SCH ×2 (09:31→18:31)
[2021-03-05] MEDS: DOCUSATE SODIUM 100 MG/10 ML ORAL LIQD PO SCH ×2 (09:31→21:21)
[2021-03-05] MEDS: DEXTROSE 5% IN WATER 1,000 ML IV SCH (09:40)
[2021-03-05] MEDS: MAGNESIUM HYDROXIDE (MOM) ORAL LIQD UDC PO SCH (10:18)
--- NOTE | 2021-03-05 10:27 | Progress Note ---
Assessment and Plan 1. Acute kidney injury: Vasomotor TAISHA in the setting of volume depletion. Renal US negative. Continue IV fluids. Monitor renal function. Creatinine level is better. Avoid nephrotoxic agents. Meds dosage based on GFR. 2. FEN: Hypernatremia, improving. Hypokalemia, K level is better, monitor. Monitor lytes and volume status. 3. Fecal impaction: Lactulose as needed. Per primary. 4. Bladder retention: Follow bladder scan. 5. Vascular dementia: Supportive care. 6. Hypertension. Improved, monitor. Subjective: Patient was not examined today. However the examination findings from other providers noted. The current and previous medical records are reviewed in detail as are laboratory and imaging data reviewed when appropriate. Medications being given are also reviewed. In addition the case has been discussed with the attending hospitalist and the nurse when needed. New renal recommendations as above. Examination: Subjective Date of service: 03/05/21 Principal diagnosis: GI bleed Objective - Vital Signs Vital signs: Vital Signs - 12hr 03/04/21 03/05/21 03/05/21 23:00 05:51 09:30 Temperature 98.2 F 98.2 F Pulse Rate 60 Respiratory 20 18 Rate Blood Pressure 161/78 132/70 O2 Sat by Pulse 97 99 Oximetry 03/05/21 09:32 Temperature Pulse Rate Respiratory 18 Rate Blood Pressure O2 Sat by Pulse 96 Oximetry - Lab 03/03/21 18:42 03/04/21 04:57 Most recent lab results Calcium 8.1 mg/dL (8.4-10.2) L 03/04/21 04:57 Phosphorus 3.30 mg/dL (2.5-4.5) D 03/04/21 04:57 Magnesium 2.10 mg/dL (1.7-2.3) 03/03/21 08:44 Medications & Allergies - Medications Allergies/Adverse Reactions: Allergies No Known Allergies Allergy (Unverified 02/28/21 14:19) Home Medications: Home Medications Medication Instructions Recorded Confirmed Last Taken Type No Known Home Medications [No 03/04/21 03/04/21 Unknown History Reported Home Medications] Active Medications: Generic Name Dose Route Start Last Admin Trade Name Freq PRN Reason Stop Dose Admin Acetaminophen 650 mg 03/01/21 00:32 Acetaminophen 325 Mg Tab PO Q4H PRN Pain MILD(1-3)/Fever >100.5/SHETTY Amlodipine Besylate 10 mg 03/01/21 10:00 03/05/21 09:31 Amlodipine 10 Mg Tab PO 10 mg QDAY PRABHAKAR Administration Bisacodyl 10 mg 03/03/21 10:00 03/05/21 10:19 Bisacodyl 10 Mg Rect Supp CA Not Given QDAY PRABHAKAR Carvedilol 6.25 mg 03/01/21 01:00 03/05/21 09:31 Carvedilol 6.25 Mg Tab PO 6.25 mg BID@0800,1700 PRABHAKAR Administration Docusate Sodium 100 mg 03/02/21 15:00 03/05/21 09:31 Docusate Sodium 100 Mg/10 Ml Oral Liqd PO 100 mg BID PRABHAKAR Administration Hydralazine HCl 10 mg 03/02/21 09:18 Hydralazine 20 Mg/1 Ml Inj IV Q4HR PRN Hypertension Dextrose 1,000 mls @ 50 mls/hr 03/03/21 14:00 03/05/21 09:40 D5w IV 50 mls/hr DIRECT PRABHAKAR Administration Magnesium Hydroxide 30 ml 03/03/21 10:00 03/05/21 10:18 Magnesium Hydroxide (Mom) Oral Liqd Udc PO Not Given QDAY PRABHAKAR Metoclopramide HCl 5 mg 03/01/21 00:32 Metoclopramide 10 Mg/2 Ml Inj IV Q6H PRN Nausea And Vomiting Morphine Sulfate 2 mg 03/01/21 00:32 03/03/21 23:32 Morphine 2 Mg/1 Ml Inj IV 2 mg Q4H PRN Administration Pain, Moderate (4-6) Ondansetron HCl 4 mg 03/01/21 00:32 Ondansetron 4 Mg/2 Ml Inj IV Q8H PRN Nausea And Vomiting Pantoprazole Sodium 40 mg 03/02/21 08:00 03/05/21 09:31 Pantoprazole 40 Mg Inj IV 40 mg BID PRABHAKAR Administration Sodium Chloride 10 ml 03/01/21 10:00 03/05/21 10:19 Sodium Chloride 0.9% 10 Ml Flush Syringe IV 10 ml BID PRABHAKAR Administration Sodium Chloride 10 ml 03/01/21 00:32 Sodium Chloride 0.9% 10 Ml Flush Syringe IV PRN PRN LINE FLUSH
--- NOTE | 2021-03-05 15:39 | Event Note ---
Date: 03/05/21 I called patient's son Mr. Mauri Gallagher at [phone] and discussed in detail patient's condition, tests and reports, consultants recommendation, treatment plan and possible discharge in 1 to 2 days, and inquired about his questions or concerns regarding treatment or discharge planning. She had many questions answered all of them, encouraged him to talk to the binder caser if he needs any assistance with the discharge planning. Informed him that patient would be discharged in next 1 to 2 days if stable back to assisted living/memory center. He verbalized understanding
[2021-03-06] MEDS: DEXTROSE 5% IN WATER 1,000 ML IV SCH ×2 (06:30→22:02)
[2021-03-06 07:05] LABS: BUN/Creatinine Ratio 17; Blood Urea Nitrogen 12 mg/dL (7-17); Calcium 8.3 mg/dL (8.4-10.2); Hemolysis Index 1
[2021-03-06] MEDS: carvediloL 6.25 MG TAB PO SCH ×2 (09:04→17:23)
[2021-03-06] MEDS: amLODIPine 10 MG TAB PO SCH (09:04)
[2021-03-06] MEDS: DOCUSATE SODIUM 100 MG/10 ML ORAL LIQD PO SCH ×2 (09:05→22:00)
[2021-03-06] MEDS: MAGNESIUM HYDROXIDE (MOM) ORAL LIQD UDC PO SCH (09:05)
[2021-03-06] MEDS: PANTOPRAZOLE 40 MG TAB PO SCH ×2 (09:49→17:22)
--- NOTE | 2021-03-06 17:08 | Progress Note ---
Assessment and Plan Assessment and plan: on 03/05/2021 I called patient's son Mr. Mauri Gallagher at [phone] and discussed in detail patient's condition, tests and reports, consultants recommendation, treatment plan and possible discharge in 1 to 2 days, and inquired about his questions or concerns regarding treatment or discharge planning. She had many questions answered all of them, encouraged him to talk to the case picker if he needs any assistance with the discharge planning. Informed him that patient would be discharged in next 1 to 2 days if stable back to assisted living/memory center. He verbalized understanding I called patient's son Mr. Mauri Gallagher on 03/02/2021 at [phone] to discuss about patient's condition treatment plan unable to reach as nobody picked up the phone left a message to call back to discuss about the patient care I will try to reach out to him again --Hypokalemia potassium 3.1 Current Visit: Yes Status: Acute KCl 40 mEq every 4 hours x2 doses magnesium and phosphate normal level Monitor electrolytes -- Fecal impaction/improved Current Visit: Yes Status: Acute stool softeners, suppositories continue bowel regimen Patient is having bowel movements --Rectal bleeding; no new episodes Current Visit: Yes Status: Acute GI evaluated the patient, could not contact family In spite of multiple attempts Patient's H&H low stable, no new episodes of GI bleeding GI cleared for discharge , Further evaluation as outpatient -- TAISHA (acute kidney injury)/resolved Current Visit: Yes Status: Acute Vasomotor nephropathy, now resolved Monitor renal function, avoid nephrotoxin Nephrology following --Vascular dementia Current Visit: Yes Status: Chronic Supportive care , check with family her baseline status . --Full CODE STATUS; --DC planning per case management; Patient is from assisted living Recommend PT and OT evaluation For discharge needs Pending PT OT evaluation and recommendations --DVT prophylaxis Current Visit: Yes Status: Acute On heparin and GI prophylaxis Closely monitor the patient and adjust the management as needed 03/01/2021; patient severely constipated mild improvement with lactulose, Repeat x-ray KUB, improvement in constipation however continues to have stool impaction Give another dose of lactulose, if no improvement consider enema 03/02/2021; patient had an episode of rectal bleeding last night/early this morning Subcu heparin discontinued, H&H mild drop, surgery, GI consult requested Closely monitor, electrolytes replenished 03/03/2021; patient more alert and awake No new episodes of of rectal bleeding Vital signs and H&H stable GI cleared for discharge Follow PT OT evaluation Possible discharge in 1 to 2 days if stable 03/04/2021; patient feels slightly better H&H stable no GI bleeding, Awaiting PT and OT evaluation and recommendations Patient is from assisted living DC planning per case management 03/05/2021; patient is alert and awake confused Not in acute distress, follow PT OT evaluation recommendation Patient is from assisted living, DC planning per case management We will try to reach out to the family today again 03/06/2021; I spoke with patient's son Mauri Gallagher yesterday Regarding discharge planning, suggested SNF placement, however he reports That patient is well cared for at the assisted living/memory center [[facility]] And she is very comfortable there, and requested to discharge her back to the same place. Possible discharge tomorrow if stable Hypokalemia, replenished with oral KCl. History Interval history: I have seen and examined the patient this morning during morning rounds Patient's chart and medications reviewed, patient is alert and awake confused Not in acute distress, vital signs reviewed Hospitalist Physical - Constitutional Vitals: Temp Pulse Resp BP Pulse Ox 97.5 F L 71 20 143/84 98 03/06/21 06:48 03/06/21 11:19 03/06/21 06:48 03/06/21 09:04 03/06/21 11:19 General appearance: Present: no acute distress, well-nourished, other (Confused at times) - EENT Eyes: Present: PERRL, EOM intact - Neck Neck: Present: supple, normal ROM - Respiratory Respiratory effort: normal Respiratory: bilateral: diminished, negative: rales, rhonchi, wheezing - Cardiovascular Rhythm: regular Heart Sounds: Present: S1 & S2 - Extremities Extremities: no ischemia, No edema - Abdominal General gastrointestinal: soft, non-tender, non-distended, normal bowel sounds - Integumentary Integumentary: Present: clear, warm - Psychiatric Psychiatric: appropriate mood/affect, cooperative - Neurologic Neurologic: CNII-XII intact, moves all extremities Results - Labs CBC & Chem 7: 03/03/21 18:42 03/06/21 06:21 Labs: Laboratory Last Values WBC 8.1 K/mm3 (4.5-11.0) 03/02/21 05:44 RBC 2.76 M/mm3 (3.65-5.03) L 03/02/21 05:44 Hgb 8.2 gm/dl (10.1-14.3) L 03/03/21 18:42 Hct 23.5 % (30.3-42.9) L 03/03/21 18:42 MCV 96 fl (79-97) 03/02/21 05:44 MCH 33 pg (28-32) H 03/02/21 05:44 MCHC 35 % (30-34) H 03/02/21 05:44 RDW 16.6 % (13.2-15.2) H 03/02/21 05:44 Plt Count 261 K/mm3 (140-440) 03/02/21 05:44 Lymph % (Auto) 17.3 % (13.4-35.0) 03/02/21 05:44 Ward % (Auto) 11.6 % (0.0-7.3) H 03/02/21 05:44 Eos % (Auto) 3.6 % (0.0-4.3) 03/02/21 05:44 Baso % (Auto) 0.5 % (0.0-1.8) 03/02/21 05:44 Lymph # (Auto) 1.4 K/mm3 (1.2-5.4) 03/02/21 05:44 Ward # (Auto) 0.9 K/mm3 (0.0-0.8) H 03/02/21 05:44 Eos # (Auto) 0.3 K/mm3 (0.0-0.4) 03/02/21 05:44 Baso # (Auto) 0.0 K/mm3 (0.0-0.1) 03/02/21 05:44 Seg Neutrophils % 67.0 % (40.0-70.0) 03/02/21 05:44 Seg Neutrophils # 5.4 K/mm3 (1.8-7.7) 03/02/21 05:44 Sodium 139 mmol/L (137-145) 03/06/21 06:21 Potassium 3.1 mmol/L (3.6-5.0) L D 07/05/21 06:21 Chloride 105.2 mmol/L (98-107) 03/06/21 06:21 Carbon Dioxide 25 mmol/L (22-30) 03/06/21 06:21 Anion Gap 12 mmol/L 03/06/21 06:21 BUN 12 mg/dL (7-17) 03/06/21 06:21 Creatinine 0.7 mg/dL (0.6-1.2) 03/06/21 06:21 Estimated GFR > 60 ml/min 03/06/21 06:21 BUN/Creatinine Ratio 17 % 03/06/21 06:21 Glucose 123 mg/dL (65-100) H 03/06/21 06:21 Hemoglobin A1c 6.1 % (4-6) H 03/01/21 03:21 Calcium 8.3 mg/dL (8.4-10.2) L 03/06/21 06:21 Phosphorus 2.70 mg/dL (2.5-4.5) 03/06/21 06:21 Magnesium 1.90 mg/dL (1.7-2.3) 03/06/21 06:21 Total Bilirubin 0.50 mg/dL (0.1-1.2) 03/01/21 03:21 Direct Bilirubin 0.2 mg/dL (0-0.2) 02/28/21 14:23 Indirect Bilirubin 0.4 mg/dL 02/28/21 14:23 AST 17 units/L (5-40) 03/01/21 03:21 ALT 11 units/L (7-56) 03/01/21 03:21 Alkaline Phosphatase 86 units/L (35-129) 03/01/21 03:21 Total Protein 5.5 g/dL (6.3-8.2) L 03/01/21 03:21 Albumin 2.9 g/dL (3.9-5) L 03/01/21 03:21 Albumin/Globulin Ratio 1.1 % 03/01/21 03:21 Lipase 47 units/L (13-60) 02/28/21 14:23 Urine Color Yellow (Yellow) 02/28/21 02:50 Urine Turbidity Clear (Clear) 02/28/21 02:50 Urine pH 5.0 (5.0-7.0) 02/28/21 02:50 Ur Specific [place] 1.012 (1.003-1.030) 02/28/21 02:50 Urine Protein <15 mg/dl mg/dL (Negative) 02/28/21 02:50 Urine Glucose (UA) Neg mg/dL (Negative) 02/28/21 02:50 Urine Ketones Neg mg/dL (Negative) 02/28/21 02:50 Urine Blood Mod (Negative) 02/28/21 02:50 Urine Nitrite Neg (Negative) 02/28/21 02:50 Urine Bilirubin Neg (Negative) 02/28/21 02:50 Urine Urobilinogen 2.0 mg/dL (<2.0) 02/28/21 02:50 Ur Leukocyte Esterase Neg (Negative) 02/28/21 02:50 Urine WBC (Auto) < 1.0 /HPF (0.0-6.0) 02/28/21 02:50 Urine RBC (Auto) 15.0 /HPF (0.0-6.0) 02/28/21 02:50 U Epithel Cells (Auto) < 1.0 /HPF (0-13.0) 02/28/21 02:50 Urine Mucus Few /HPF 02/28/21 02:50 Herrera/IV: Voiding Method Incontinent Active Medications - Current Medications Current Medications: Generic Name Dose Route Start Last Admin Trade Name Freq PRN Reason Stop Dose Admin Acetaminophen 650 mg 03/01/21 00:32 Acetaminophen 325 Mg Tab PO Q4H PRN Pain MILD(1-3)/Fever >100.5/SHETTY Amlodipine Besylate 10 mg 03/01/21 10:00 03/06/21 09:04 Amlodipine 10 Mg Tab PO 10 mg QDAY PRABHAKAR Administration Bisacodyl 10 mg 03/03/21 10:00 03/06/21 09:05 Bisacodyl 10 Mg Rect Supp RI Not Given QDAY PRABHAKAR Carvedilol 6.25 mg 03/01/21 01:00 03/06/21 09:04 Carvedilol 6.25 Mg Tab PO 6.25 mg BID@0800,1700 PRABHAKAR Administration Docusate Sodium 100 mg 03/02/21 15:00 03/06/21 09:05 Docusate Sodium 100 Mg/10 Ml Oral Liqd PO 100 mg BID PRABHAKAR Administration Hydralazine HCl 10 mg 03/02/21 09:18 Hydralazine 20 Mg/1 Ml Inj IV Q4HR PRN Hypertension Dextrose 1,000 mls @ 50 mls/hr 03/03/21 14:00 03/06/21 06:30 D5w IV 50 mls/hr DIRECT PRABHAKAR Administration Magnesium Hydroxide 30 ml 03/03/21 10:00 03/06/21 09:05 Magnesium Hydroxide (Mom) Oral Liqd Udc PO 30 ml QDAY PRABHAKAR Administration Metoclopramide HCl 5 mg 03/01/21 00:32 Metoclopramide 10 Mg/2 Ml Inj IV Q6H PRN Nausea And Vomiting Morphine Sulfate 2 mg 03/01/21 00:32 03/03/21 23:32 Morphine 2 Mg/1 Ml Inj IV 2 mg Q4H PRN Administration Pain, Moderate (4-6) Ondansetron HCl 4 mg 03/01/21 00:32 Ondansetron 4 Mg/2 Ml Inj IV Q8H PRN Nausea And Vomiting Pantoprazole Sodium 40 mg 03/06/21 10:00 03/06/21 09:49 Pantoprazole 40 Mg Tab PO 40 mg BIDAC PRABHAKAR Administration Potassium Chloride 40 meq 03/06/21 18:00 Potassium Chloride Er 20 Meq Tab PO 03/06/21 22:01 Q4H PRABHAKAR Sodium Chloride 10 ml 03/01/21 10:00 03/06/21 09:49 Sodium Chloride 0.9% 10 Ml Flush Syringe IV 10 ml BID PRABHAKAR Administration Sodium Chloride 10 ml 03/01/21 00:32 Sodium Chloride 0.9% 10 Ml Flush Syringe IV PRN PRN LINE FLUSH Nutrition/Malnutrition Assess - Dietary Evaluation Nutrition/Malnutrition Findings: Nutrition Notes Start: 03/02/21 13:27 Freq: Status: Active Protocol: Document 03/06/21 13:28 (Rec: 03/06/21 13:33 [email or web address]) Nutrition Notes Initial or Follow up Assessment Current Diagnosis Acute Kidney Injury Other Pertinent Diagnosis fecal impaction, rectal bleed, dementia Current Diet [facility] soft Labs/Tests K 3.1 Pertinent Medications D5w at 50 ml/hr Height 5 ft 3 in Weight 60.5 kg [place] Body Weight (kg) 52.27 BMI 23.6 Weight change and time frame wt change noted, will follow Weight Status Appropriate Subjective/Other Information FU for intakes. Observed 1.5 ONS empty at bedside and 50% of breakfast eaten. Percent of energy/protein needs met: 100%/100% Burn Absent Trauma Absent Current % PO Fair (50-74%) Minimum of two criteria No physical signs of malnutrition #1 Nutrition Diagnosis Predicted suboptimal energy intake As Evidenced by Signs and Symptoms pt meeting 100% of needs Diagnosis Progress(for reassessment Resolved documentation) Is patient on ventilator? No Is Patient Ambulatory and/or Out of Bed No REE-([facility]-confined to bed) 1230.384 Calculation Used for Recommendations [facility] Additional Notes Protein: (1-1.2g/kg) 65-77g Fluid: 1 ml/kcal Nutrition Intervention Change Diet Order: Continue Add Supplement/Snack (indicate name/kcal Ensure HP TID /protein ) Provides kCal: 480 Provides Protein (gm) 48 Goal #1 Continue to meet at least 80% of protein and kcal needs Anticipated Discharge Needs: mech soft with ONS TID Follow-Up By: 03/09/21 Additional Comments FU for stable intakes
[2021-03-06] MEDS: POTASSIUM CHLORIDE ER 20 MEQ TAB PO SCH ×2 (17:22→22:01)
--- NOTE | 2021-03-06 18:27 | XRay Report ---
ABDOMEN 3 VIEW(S) INDICATION / CLINICAL INFORMATION: Constipation/follow-up. COMPARISON: 03/01/21 FINDINGS: TUBES / LINES: None. BOWEL GAS PATTERN: No significantly dilated small bowel. Large amount of fecal material throughout th e colon is unchanged. Slight decrease in amount of fecal material in the rectal vault. FREE AIR / EXTRALUMINAL GAS: None seen. ADDITIONAL FINDINGS: No significant additional findings. CHEST: Visualized chest shows no significant abnormality. IMPRESSION: 1. Constipation/obstipation with slight improvement in rectal fecal impaction. Signer Name: Osmani Francisco MD Signed: 03/06/2021 6:23 PM Workstation Name: [id number]
--- NOTE | 2021-03-06 23:24 | Progress Note ---
Assessment and Plan 1. Acute kidney injury: Vasomotor TAISHA in the setting of volume depletion. Renal US negative. Monitor renal function. Creatinine level is better. Avoid nephrotoxic agents. Meds dosage based on GFR. 2. FEN: Hypernatremia, improved. Hypokalemia, replete K, monitor. Monitor lytes and volume status. 3. Fecal impaction: Lactulose as needed. Per primary. 4. Bladder retention: Follow bladder scan. 5. Vascular dementia: Supportive care. 6. Hypertension. Improved, monitor. Subjective: Patient was seen and examined at the bedside. Examination: General appearance: well-developed, appears stated age, no distress HEENT: ATNC, KUL[place]ER Neck: trachea midline Respiratory: Clear to Auscultation Heart: regular, S1S2, no murmur Gastrointestinal: soft, normoactive bowel sounds, not tender Integumentary: no obvious rash Neurologic: lethargic, opens eyes, not following any command Ext: no edema Subjective Date of service: 03/06/21 Principal diagnosis: GI bleed Objective - Vital Signs Vital signs: Vital Signs - 12hr 03/06/21 03/06/21 03/06/21 16:34 16:35 17:23 Temperature 99.3 F Pulse Rate 79 71 71 Respiratory 18 Rate Blood Pressure 124/76 O2 Sat by Pulse 96 97 Oximetry 03/06/21 22:27 Temperature 99.1 F Pulse Rate 86 Respiratory 18 Rate Blood Pressure 99/58 O2 Sat by Pulse 94 Oximetry - Lab 03/07/21 07:34 03/07/21 07:34 Most recent lab results Calcium 8.3 mg/dL (8.4-10.2) L 03/06/21 06:21 Phosphorus 2.70 mg/dL (2.5-4.5) 03/06/21 06:21 Magnesium 1.90 mg/dL (1.7-2.3) 03/06/21 06:21 Medications & Allergies - Medications Allergies/Adverse Reactions: Allergies No Known Allergies Allergy (Unverified 02/28/21 14:19) Home Medications: Home Medications Medication Instructions Recorded Confirmed Last Taken Type No Known Home Medications [No 03/04/21 03/04/21 Unknown History Reported Home Medications] Active Medications: Generic Name Dose Route Start Last Admin Trade Name Freq PRN Reason Stop Dose Admin Acetaminophen 650 mg 03/01/21 00:32 Acetaminophen 325 Mg Tab PO Q4H PRN Pain MILD(1-3)/Fever >100.5/SHETTY Amlodipine Besylate 10 mg 03/01/21 10:00 03/06/21 09:04 Amlodipine 10 Mg Tab PO 10 mg QDAY PRABHAKAR Administration Bisacodyl 10 mg 03/03/21 10:00 03/06/21 09:05 Bisacodyl 10 Mg Rect Supp [place] Not Given QDAY PRABHAKAR Carvedilol 6.25 mg 03/01/21 01:00 03/06/21 17:23 Carvedilol 6.25 Mg Tab PO 6.25 mg BID@0800,1700 PRABHAKAR Administration Docusate Sodium 100 mg 03/02/21 15:00 03/06/21 22:00 Docusate Sodium 100 Mg/10 Ml Oral Liqd PO 100 mg BID PRABHAKAR Administration Hydralazine HCl 10 mg 03/02/21 09:18 Hydralazine 20 Mg/1 Ml Inj IV Q4HR PRN Hypertension Dextrose 1,000 mls @ 50 mls/hr 03/03/21 14:00 03/06/21 22:02 D5w IV 50 mls/hr DIRECT PRABHAKAR Administration Magnesium Hydroxide 30 ml 03/03/21 10:00 03/06/21 09:05 Magnesium Hydroxide (Mom) Oral Liqd Udc PO 30 ml QDAY PRABHAKAR Administration Metoclopramide HCl 5 mg 03/01/21 00:32 Metoclopramide 10 Mg/2 Ml Inj IV Q6H PRN Nausea And Vomiting Morphine Sulfate 2 mg 03/01/21 00:32 03/03/21 23:32 Morphine 2 Mg/1 Ml Inj IV 2 mg Q4H PRN Administration Pain, Moderate (4-6) Ondansetron HCl 4 mg 03/01/21 00:32 Ondansetron 4 Mg/2 Ml Inj IV Q8H PRN Nausea And Vomiting Pantoprazole Sodium 40 mg 03/06/21 10:00 03/06/21 17:22 Pantoprazole 40 Mg Tab PO 40 mg BIDAC PRABHAKAR Administration Sodium Chloride 10 ml 03/01/21 10:00 03/06/21 22:01 Sodium Chloride 0.9% 10 Ml Flush Syringe IV 10 ml BID PRABHAKAR Administration Sodium Chloride 10 ml 03/01/21 00:32 Sodium Chloride 0.9% 10 Ml Flush Syringe IV PRN PRN LINE FLUSH
[2021-03-07 07:56] LABS: Hematocrit 27.6 % (30.3-42.9); Hemoglobin 9.6 gm/dl (10.1-14.3)
[2021-03-07] MEDS: PANTOPRAZOLE 40 MG TAB PO SCH ×2 (08:08→17:54)
[2021-03-07] MEDS: carvediloL 6.25 MG TAB PO SCH ×2 (08:08→17:54)
--- NOTE | 2021-03-07 08:16 | Progress Note ---
Assessment and Plan 1. Acute kidney injury: Vasomotor TAISHA in the setting of volume depletion. Renal US negative. Monitor renal function. Creatinine level is better. Avoid nephrotoxic agents. Meds dosage based on GFR. 2. FEN: Hypernatremia, improved. Hypokalemia, improved, monitor. Monitor lytes and volume status. 3. Fecal impaction: Lactulose as needed. Per primary. 4. Bladder retention: Follow bladder scan. 5. Vascular dementia: Supportive care. 6. Hypertension. Improved, monitor. Will sign off. Subjective: Patient was seen and examined at the bedside. Examination: General appearance: well-developed, appears stated age, no distress HEENT: ATNC, [place] Neck: trachea midline Respiratory: Clear to Auscultation Heart: regular, S1S2, no murmur Gastrointestinal: soft, normoactive bowel sounds, not tender Integumentary: no obvious rash Neurologic: lethargic, opens eyes, not following any command Ext: no edema Subjective Date of service: 03/07/21 Principal diagnosis: GI bleed Objective - Vital Signs Vital signs: Vital Signs - 12hr 03/06/21 03/07/21 03/07/21 22:27 05:13 08:08 Temperature 99.1 F 97.6 F Pulse Rate 86 80 88 Respiratory 18 18 Rate Blood Pressure 99/58 139/74 O2 Sat by Pulse 94 96 Oximetry - Lab 03/07/21 07:34 03/07/21 07:34 Most recent lab results Calcium 8.3 mg/dL (8.4-10.2) L 03/06/21 06:21 Phosphorus 2.70 mg/dL (2.5-4.5) 03/06/21 06:21 Magnesium 1.90 mg/dL (1.7-2.3) 03/06/21 06:21 Medications & Allergies - Medications Allergies/Adverse Reactions: Allergies No Known Allergies Allergy (Unverified 02/28/21 14:19) Home Medications: Home Medications Medication Instructions Recorded Confirmed Last Taken Type No Known Home Medications [No 03/04/21 03/04/21 Unknown History Reported Home Medications] Active Medications: Generic Name Dose Route Start Last Admin Trade Name Freq PRN Reason Stop Dose Admin Acetaminophen 650 mg 03/01/21 00:32 Acetaminophen 325 Mg Tab PO Q4H PRN Pain MILD(1-3)/Fever >100.5/SHETTY Amlodipine Besylate 10 mg 03/01/21 10:00 03/06/21 09:04 Amlodipine 10 Mg Tab PO 10 mg QDAY PRABHAKAR Administration Bisacodyl 10 mg 03/03/21 10:00 03/06/21 09:05 Bisacodyl 10 Mg Rect Supp [place] Not Given QDAY PRABHAKAR Carvedilol 6.25 mg 03/01/21 01:00 03/07/21 08:08 Carvedilol 6.25 Mg Tab PO 6.25 mg BID@0800,1700 PRABHAKRA Administration Docusate Sodium 100 mg 03/02/21 15:00 03/06/21 22:00 Docusate Sodium 100 Mg/10 Ml Oral Liqd PO 100 mg BID PRABHAKAR Administration Hydralazine HCl 10 mg 03/02/21 09:18 Hydralazine 20 Mg/1 Ml Inj IV Q4HR PRN Hypertension Dextrose 1,000 mls @ 50 mls/hr 03/03/21 14:00 03/06/21 22:02 D5w IV 50 mls/hr DIRECT PRABHAKAR Administration Magnesium Hydroxide 30 ml 03/03/21 10:00 03/06/21 09:05 Magnesium Hydroxide (Mom) Oral Liqd Udc PO 30 ml QDAY PRABHAKAR Administration Metoclopramide HCl 5 mg 03/01/21 00:32 Metoclopramide 10 Mg/2 Ml Inj IV Q6H PRN Nausea And Vomiting Morphine Sulfate 2 mg 03/01/21 00:32 03/03/21 23:32 Morphine 2 Mg/1 Ml Inj IV 2 mg Q4H PRN Administration Pain, Moderate (4-6) Ondansetron HCl 4 mg 03/01/21 00:32 Ondansetron 4 Mg/2 Ml Inj IV Q8H PRN Nausea And Vomiting Pantoprazole Sodium 40 mg 03/06/21 10:00 03/07/21 08:08 Pantoprazole 40 Mg Tab PO 40 mg BIDAC PRABHAKAR Administration Sodium Chloride 10 ml 03/01/21 10:00 03/06/21 22:01 Sodium Chloride 0.9% 10 Ml Flush Syringe IV 10 ml BID PRABHAKAR Administration Sodium Chloride 10 ml 03/01/21 00:32 Sodium Chloride 0.9% 10 Ml Flush Syringe IV PRN PRN LINE FLUSH
[2021-03-07 08:25] LABS: BUN/Creatinine Ratio 21; Blood Urea Nitrogen 17 mg/dL (7-17); Calcium 8.6 mg/dL (8.4-10.2); Hemolysis Index 1
--- NOTE | 2021-03-07 09:45 | Discharge Summary ---
Providers - Providers Date of Admission: 03/01/21 11:05 Date of discharge: 03/07/21 Attending physician: HOLA ARIAS 03/01/21 00:45 Consult to Physician [CONS] Routine Comment: Consulting Provider: GREG QUINTERO Physician Instructions: Reason For Exam: TAISHA/Ckd 03/02/21 06:57 Consult to Physician [CONS] Routine Comment: Consulting Provider: FRANK FOWLER Physician Instructions: Reason For Exam: Rectal bleeding 03/02/21 08:38 Consult to Physician [CONS] Routine Comment: Consulting Provider: KENA NORWOOD Physician Instructions: Reason For Exam: rectal bleeding 03/02/21 11:09 Physical Therapy Evaluation and Treat [CONS] Stat Comment: Reason For Exam: Eval and treat 03/02/21 11:10 Occupational Therapy Evaluate and Treat [CONS] Stat Comment: Reason For Exam: eval and treat Primary care physician: CHAITANYA ARNETT Hospitalization Condition: Fair Disposition: DC/[place]-70 ANOTHER TYPE [facility] Exam - Constitutional Vitals: Temp Pulse Resp BP Pulse Ox 97.6 F 88 18 139/74 96 03/07/21 05:13 03/07/21 08:08 03/07/21 05:13 03/07/21 05:13 03/07/21 05:13 Plan Follow up with: CHAITANYA ARNETT MD [Primary Care Provider] - 3-5 Days
[2021-03-07] MEDS: amLODIPine 10 MG TAB PO SCH (10:00)
[2021-03-07] MEDS: DOCUSATE SODIUM 100 MG/10 ML ORAL LIQD PO SCH ×2 (10:00→22:23)
[2021-03-07] MEDS: MAGNESIUM HYDROXIDE (MOM) ORAL LIQD UDC PO SCH (10:00)
--- NOTE | 2021-03-07 14:20 | Fluoroscopy Report ---
FLUOROSCOPY THERAPEUTIC ENEMA HISTORY: Chronic constipation DESCRIPTION OF PROCEDURE: A rectal tube was inserted and secured by balloon inflation. Approximately 500 cc of Gastrografin contrast agent was administered through the rectal tube. Only the descending c olon, sigmoid colon and rectum could be opacified. The patient was incontinent and could not retain t he contrast. There is moderate diverticulosis of the sigmoid colon. No obvious mass or inflammation. IMPRESSION: Technically successful Gastrografin enema as described. Fluoroscopy time: 2.2 minutes. Fluoroscopic images: 3 Signer Name: Blake Bellamy Jr, MD Signed: 03/07/2021 2:16 PM Workstation Name: [id number]
--- NOTE | 2021-03-07 17:27 | Progress Note ---
Assessment and Plan Assessment and plan: -- Fecal impaction/persistent Current Visit: Yes Status: Acute stool softeners, suppositories continue bowel regimen Patient is having bowel movements --Gastrografin enema; Follow-up abdominal series none none 03/06/21 revealed Slight improvement of constipation obstipation in the rectal impaction However patient still has large amount of fecal material throughout the colon which was unchanged. Today 03/07/2021 we requested Gastrografin enema; Gastrografin enema Revealed successful Gastrografin enema, including descending colon sigmoid colon and rectum. Moderate diverticulosis of the sigmoid colon no obvious mass or inflammation --Hypokalemia potassium 3.1 Current Visit: Yes Status: Acute KCl 40 mEq every 4 hours x2 doses magnesium and phosphate normal level Monitor electrolytes --Rectal bleeding; no new episodes Current Visit: Yes Status: Acute GI evaluated the patient, could not contact family In spite of multiple attempts Patient's H&H low stable, no new episodes of GI bleeding GI cleared for discharge , Further evaluation as outpatient -- TAISHA (acute kidney injury)/resolved Current Visit: Yes Status: Acute Vasomotor nephropathy, now resolved Monitor renal function, avoid nephrotoxin Nephrology following --Vascular dementia Current Visit: Yes Status: Chronic Supportive care , check with family her baseline status . --Full CODE STATUS; --DC planning per case management; Patient is from assisted living Recommend PT and OT evaluation For discharge needs Pending PT OT evaluation and recommendations --DVT prophylaxis Current Visit: Yes Status: Acute On heparin and GI prophylaxis Closely monitor the patient and adjust the management as needed 03/01/2021; patient severely constipated mild improvement with lactulose, Repeat x-ray KUB, improvement in constipation however continues to have stool impaction Give another dose of lactulose, if no improvement consider enema 03/02/2021; patient had an episode of rectal bleeding last night/early this morning Subcu heparin discontinued, H&H mild drop, surgery, GI consult requested Closely monitor, electrolytes replenished 03/03/2021; patient more alert and awake No new episodes of of rectal bleeding Vital signs and H&H stable GI cleared for discharge Follow PT OT evaluation Possible discharge in 1 to 2 days if stable 03/04/2021; patient feels slightly better H&H stable no GI bleeding, Awaiting PT and OT evaluation and recommendations Patient is from assisted living DC planning per case management 03/05/2021; patient is alert and awake confused Not in acute distress, follow PT OT evaluation recommendation Patient is from assisted living, DC planning per case management We will try to reach out to the family today again 03/06/2021; I spoke with patient's son Mauri Gallagher yesterday Regarding discharge planning, suggested SNF placement, however he reports That patient is well cared for at the assisted living/memory center [[facility]] And she is very comfortable there, and requested to discharge her back to the same place. Possible discharge tomorrow if stable Hypokalemia, replenished with oral KCl. 03/07/2021; persistent constipation/fecal impaction on follow-up abdominal series yesterday Patient underwent Gastrografin enema, which was successful, no tumor or mass identified Contacted patient's son; on 03/05/2021 I called patient's son Mr. Mauri Gallagher at [phone] and discussed in detail patient's condition, tests and reports, consultants recommendation, treatment plan and possible discharge in 1 to 2 days, and inquired about his questions or concerns regarding treatment or discharge planning. He had many questions answered all of them, encouraged him to talk to the manager of case if he needs any assistance with the discharge planning. Informed him that patient would be discharged in next 1 to 2 days if stable back to assisted living/memory center. He verbalized understanding 03/07/2021 ;I called patient's son Mr. Mauri Gallagher on 03/02/2021 at [phone] and updated patient's condition, in view of patient's persistent fecal impaction, not completely relieved by bowel regimen, requested Gastrografin enema today 03/07/2021, which was successful, no tumor or mass noted. Possible discharge back to assisted living if stable tomorrow History Interval history: Seen and examined the patient at the bedside Patient's chart and medications reviewed Patient is confused[baseline] not in acute distress However follow-up abdominal series done last night showed persistent fecal impaction Requested Gastrografin enema today Vital signs noted Hospitalist Physical - Constitutional Vitals: Temp Pulse Resp BP Pulse Ox 97.6 F 60 20 139/74 96 03/07/21 05:13 03/07/21 10:34 03/07/21 10:00 03/07/21 05:13 03/07/21 10:34 General appearance: Present: no acute distress, well-nourished, other (Confused at times) - EENT Eyes: Present: PERRL, EOM intact - Neck Neck: Present: supple, normal ROM - Respiratory Respiratory effort: normal Respiratory: bilateral: diminished, negative: rales, rhonchi, wheezing - Cardiovascular Rhythm: regular Heart Sounds: Present: S1 & S2 - Extremities Extremities: no ischemia, No edema - Abdominal General gastrointestinal: soft, non-tender, non-distended, normal bowel sounds - Integumentary Integumentary: Present: clear, warm - Psychiatric Psychiatric: appropriate mood/affect, cooperative - Neurologic Neurologic: moves all extremities Results - Labs CBC & Chem 7: 03/07/21 07:34 03/07/21 07:34 Labs: Laboratory Last Values WBC 8.1 K/mm3 (4.5-11.0) 03/02/21 05:44 RBC 2.76 M/mm3 (3.65-5.03) L 03/02/21 05:44 Hgb 9.6 gm/dl (10.1-14.3) L 03/07/21 07:34 Hct 27.6 % (30.3-42.9) L 03/07/21 07:34 MCV 96 fl (79-97) 03/02/21 05:44 MCH 33 pg (28-32) H 03/02/21 05:44 MCHC 35 % (30-34) H 03/02/21 05:44 RDW 16.6 % (13.2-15.2) H 03/02/21 05:44 Plt Count 261 K/mm3 (140-440) 03/02/21 05:44 Lymph % (Auto) 17.3 % (13.4-35.0) 03/02/21 05:44 Mckean % (Auto) 11.6 % (0.0-7.3) H 03/02/21 05:44 Eos % (Auto) 3.6 % (0.0-4.3) 03/02/21 05:44 Baso % (Auto) 0.5 % (0.0-1.8) 03/02/21 05:44 Lymph # (Auto) 1.4 K/mm3 (1.2-5.4) 03/02/21 05:44 Mckean # (Auto) 0.9 K/mm3 (0.0-0.8) H 03/02/21 05:44 Eos # (Auto) 0.3 K/mm3 (0.0-0.4) 03/02/21 05:44 Baso # (Auto) 0.0 K/mm3 (0.0-0.1) 03/02/21 05:44 Seg Neutrophils % 67.0 % (40.0-70.0) 03/02/21 05:44 Seg Neutrophils # 5.4 K/mm3 (1.8-7.7) 03/02/21 05:44 Sodium 139 mmol/L (137-145) 03/07/21 07:34 Potassium 3.9 mmol/L (3.6-5.0) D 03/07/21 07:34 Chloride 104.6 mmol/L (98-107) 03/07/21 07:34 Carbon Dioxide 27 mmol/L (22-30) 03/07/21 07:34 Anion Gap 11 mmol/L 03/07/21 07:34 BUN 17 mg/dL (7-17) 03/07/21 07:34 Creatinine 0.8 mg/dL (0.6-1.2) 03/07/21 07:34 Estimated GFR > 60 ml/min 03/07/21 07:34 BUN/Creatinine Ratio 21 % 03/07/21 07:34 Glucose 112 mg/dL (65-100) H 03/07/21 07:34 Hemoglobin A1c 6.1 % (4-6) H 03/01/21 03:21 Calcium 8.6 mg/dL (8.4-10.2) 03/07/21 07:34 Phosphorus 2.60 mg/dL (2.5-4.5) 03/07/21 07:34 Magnesium 2.00 mg/dL (1.7-2.3) 03/07/21 07:34 Total Bilirubin 0.50 mg/dL (0.1-1.2) 03/01/21 03:21 Direct Bilirubin 0.2 mg/dL (0-0.2) 02/28/21 14:23 Indirect Bilirubin 0.4 mg/dL 02/28/21 14:23 AST 17 units/L (5-40) 03/01/21 03:21 ALT 11 units/L (7-56) 03/01/21 03:21 Alkaline Phosphatase 86 units/L (35-129) 03/01/21 03:21 Total Protein 5.5 g/dL (6.3-8.2) L 03/01/21 03:21 Albumin 2.9 g/dL (3.9-5) L 03/01/21 03:21 Albumin/Globulin Ratio 1.1 % 03/01/21 03:21 Lipase 47 units/L (13-60) 02/28/21 14:23 Urine Color Yellow (Yellow) 02/28/21 02:50 Urine Turbidity Clear (Clear) 02/28/21 02:50 Urine pH 5.0 (5.0-7.0) 02/28/21 02:50 Ur Specific Disney 1.012 (1.003-1.030) 02/28/21 02:50 Urine Protein <15 mg/dl mg/dL (Negative) 02/28/21 02:50 Urine Glucose (UA) Neg mg/dL (Negative) 02/28/21 02:50 Urine Ketones Neg mg/dL (Negative) 02/28/21 02:50 Urine Blood Mod (Negative) 02/28/21 02:50 Urine Nitrite Neg (Negative) 02/28/21 02:50 Urine Bilirubin Neg (Negative) 02/28/21 02:50 Urine Urobilinogen 2.0 mg/dL (<2.0) 02/28/21 02:50 Ur Leukocyte Esterase Neg (Negative) 02/28/21 02:50 Urine WBC (Auto) < 1.0 /HPF (0.0-6.0) 02/28/21 02:50 Urine RBC (Auto) 15.0 /HPF (0.0-6.0) 02/28/21 02:50 U Epithel Cells (Auto) < 1.0 /HPF (0-13.0) 02/28/21 02:50 Urine Mucus Few /HPF 02/28/21 02:50 Herrera/IV: Voiding Method Incontinent Active Medications - Current Medications Current Medications: Generic Name Dose Route Start Last Admin Trade Name Freq PRN Reason Stop Dose Admin Acetaminophen 650 mg 03/01/21 00:32 Acetaminophen 325 Mg Tab PO Q4H PRN Pain MILD(1-3)/Fever >100.5/SHETTY Amlodipine Besylate 10 mg 03/01/21 10:00 03/07/21 10:00 Amlodipine 10 Mg Tab PO 10 mg QDAY PRABHAKAR Administration Bisacodyl 10 mg 03/03/21 10:00 03/07/21 10:00 Bisacodyl 10 Mg Rect Supp AL Not Given QDAY PRABHAKAR Carvedilol 6.25 mg 03/01/21 01:00 03/07/21 08:08 Carvedilol 6.25 Mg Tab PO 6.25 mg BID@0800,1700 PRABHAKAR Administration Docusate Sodium 100 mg 03/02/21 15:00 03/07/21 10:00 Docusate Sodium 100 Mg/10 Ml Oral Liqd PO 100 mg BID PRABHAKAR Administration Hydralazine HCl 10 mg 03/02/21 09:18 Hydralazine 20 Mg/1 Ml Inj IV Q4HR PRN Hypertension Dextrose 1,000 mls @ 50 mls/hr 03/03/21 14:00 03/06/21 22:02 D5w IV 50 mls/hr DIRECT PRABHAKAR Administration Magnesium Hydroxide 30 ml 03/03/21 10:00 03/07/21 10:00 Magnesium Hydroxide (Mom) Oral Liqd Udc PO Not Given QDAY PRABHAKAR Metoclopramide HCl 5 mg 03/01/21 00:32 Metoclopramide 10 Mg/2 Ml Inj IV Q6H PRN Nausea And Vomiting Morphine Sulfate 2 mg 03/01/21 00:32 03/03/21 23:32 Morphine 2 Mg/1 Ml Inj IV 2 mg Q4H PRN Administration Pain, Moderate (4-6) Ondansetron HCl 4 mg 03/01/21 00:32 Ondansetron 4 Mg/2 Ml Inj IV Q8H PRN Nausea And Vomiting Pantoprazole Sodium 40 mg 03/06/21 10:00 03/07/21 08:08 Pantoprazole 40 Mg Tab PO 40 mg BIDAC PRABHAKAR Administration Sodium Chloride 10 ml 03/01/21 10:00 03/07/21 10:00 Sodium Chloride 0.9% 10 Ml Flush Syringe IV 10 ml BID PRABHAKAR Administration Sodium Chloride 10 ml 03/01/21 00:32 Sodium Chloride 0.9% 10 Ml Flush Syringe IV PRN PRN LINE FLUSH Nutrition/Malnutrition Assess - Dietary Evaluation Nutrition/Malnutrition Findings: Nutrition Notes Start: 03/02/21 13:27 Freq: Status: Active Protocol: Document 03/06/21 13:28 (Rec: 03/06/21 13:33 [email or web address]) Nutrition Notes Initial or Follow up Assessment Current Diagnosis Acute Kidney Injury Other Pertinent Diagnosis fecal impaction, rectal bleed, dementia Current Diet Mech soft Labs/Tests K 3.1 Pertinent Medications D5w at 50 ml/hr Height 5 ft 3 in Weight 60.5 kg [place] Body Weight (kg) 52.27 BMI 23.6 Weight change and time frame wt change noted, will follow Weight Status Appropriate Subjective/Other Information FU for intakes. Observed 1.5 ONS empty at bedside and 50% of breakfast eaten. Percent of energy/protein needs met: 100%/100% Burn Absent Trauma Absent Current % PO Fair (50-74%) Minimum of two criteria No physical signs of malnutrition #1 Nutrition Diagnosis Predicted suboptimal energy intake As Evidenced by Signs and Symptoms pt meeting 100% of needs Diagnosis Progress(for reassessment Resolved documentation) Is patient on ventilator? No Is Patient Ambulatory and/or Out of Bed No REE-([place]-St. Jeor-confined to bed) 1230.384 Calculation Used for Recommendations [place] Jeor Additional Notes Protein: (1-1.2g/kg) 65-77g Fluid: 1 ml/kcal Nutrition Intervention Change Diet Order: Continue Add Supplement/Snack (indicate name/kcal Ensure HP TID /protein ) Provides kCal: 480 Provides Protein (gm) 48 Goal #1 Continue to meet at least 80% of protein and kcal needs Anticipated Discharge Needs: mech soft with ONS TID Follow-Up By: 03/09/21 Additional Comments FU for stable intakes
[2021-03-08 06:01] VITALS: BP 117/55
--- NOTE | 2021-03-08 08:09 | Event Note ---
Date: 03/07/21 Initially patient was scheduled to be discharged today, however due to patient's persistent fecal impaction, Requested Gastrografin enema, hence patient's discharge was held, will follow the patient closely After Gastrografin enema, if improves and patient is stable may discharge home tomorrow. I called patient's son Mr. Elliott Dotson and updated patient's condition and the above treatment plan as well as DC planning tomorrow if stable, He verbalized understanding
--- NOTE | 2021-03-08 08:18 | Discharge Summary ---
Providers - Providers Date of Admission: 03/01/21 11:05 Date of discharge: 03/08/21 Attending physician: HOLA ARIAS 03/01/21 00:45 Consult to Physician [CONS] Routine Comment: Consulting Provider: GREG QUINTERO Physician Instructions: Reason For Exam: TAISHA/Ckd 03/02/21 06:57 Consult to Physician [CONS] Routine Comment: Consulting Provider: FRANK FOWLER Physician Instructions: Reason For Exam: Rectal bleeding 03/02/21 08:38 Consult to Physician [CONS] Routine Comment: Consulting Provider: KENA NORWOOD Physician Instructions: Reason For Exam: rectal bleeding 03/02/21 11:09 Physical Therapy Evaluation and Treat [CONS] Stat Comment: Reason For Exam: Eval and treat 03/02/21 11:10 Occupational Therapy Evaluate and Treat [CONS] Stat Comment: Reason For Exam: eval and treat Primary care physician: CHAITANYA ARNETT Hospitalization Reason for admission: Abdominal pain /constipation Condition: Fair Pertinent studies: CT abdomen and pelvis Multiple abdominal x-rays Renal ultrasound Procedures: Gastrografin enema Revealed successful Gastrografin enema, including descending colon sigmoid colon and rectum. Moderate diverticulosis of the sigmoid colon no obvious mass or inflammation Hospital course: 85-year-old female with past medical history of chronic kidney disease, advanced dementia sent from personal snf for evaluation. Patient has 4-day history of abdominal distention and no bowel movement. In the emergency room patient had a potassium of 2.3 and elevated creatinine consistent with TAISHA/CKD. No fever or chills. No exposure to coronavirus. Patient was admitted symptomatically managed multiple electrolyte abnormalities corrected, patient received stool softeners and milk of magnesia, with very minimal improvement, patient also had rectal bleeding during the hospital stay, evaluated by GI and surgery, as patient is rectal bleeding resolved And H&H and hemodynamics are stable, GI recommended further evaluation as outpatient for possible colonoscopy after discharge Surgeon recommended bowel regimen daily, however patient continued to have residual stool impaction, yesterday 03/07/2021, patient had Gastrografin enema Which was successful, did not show any mass or tumor Today patient is comfortable no new complaints vital signs stable Patient has dementia, confused which is her baseline Hemodynamically and clinically stable for discharge Discussed the discharge planning with the nurse and the case management Discharge diagnosis: -- Fecal impaction/persistent stool softeners, suppositories continue bowel regimen s/p Gastrografin enema --Gastrografin enema; Today 03/07/2021 we requested Gastrografin enema; Gastrografin enema Revealed successful Gastrografin enema, including descending colon sigmoid colon and rectum. Moderate diverticulosis of the sigmoid colon no obvious mass or inflammation --Hypokalemia potassium 3.1 Current Visit: Yes Status: Acute KCl 40 mEq every 4 hours x2 doses magnesium and phosphate normal level Monitor electrolytes --Rectal bleeding; no new episodes Current Visit: Yes Status: Acute GI evaluated the patient, could not contact family In spite of multiple attempts Patient's H&H low stable, no new episodes of GI bleeding GI cleared for discharge , Further evaluation as outpatient -- TAISHA (acute kidney injury)/resolved Current Visit: Yes Status: Acute Vasomotor nephropathy, now resolved Monitor renal function, avoid nephrotoxin Nephrology following --Vascular dementia Current Visit: Yes Status: Chronic Supportive care , check with family her baseline status . --Full CODE STATUS; --DC planning per case management; Patient is from assisted living Recommend PT and OT evaluation For discharge needs Pending PT OT evaluation and recommendations --DVT prophylaxis Current Visit: Yes Status: Acute On heparin and GI prophylaxis Closely monitor the patient and adjust the management as needed Disposition: DC/TX-70 ANOTHER TYPE [facility] Final Discharge Diagnosis (Prints w/discharge instructions): Chronic constipation. Persistent fecal impaction. Slightly improved. Acute kidney injury/resolved. Vascular dementia. Rectal bleeding/resolved. Hypo kalemia/resolved Time spent for discharge: 35 min Core Measure Documentation - Palliative Care Palliative Care/ Comfort Measures: Not Applicable - Core Measures Any of the following diagnoses?: none Exam - Constitutional Vitals: Temp Pulse Resp BP Pulse Ox 98.0 F 60 16 117/55 92 03/08/21 05:12 03/08/21 05:12 03/08/21 05:12 03/08/21 05:12 03/08/21 05:12 General appearance: Present: no acute distress, well-nourished - EENT Eyes: Present: PERRL, EOM intact - Neck Neck: Present: supple, normal ROM - Respiratory Respiratory effort: normal Respiratory: bilateral: diminished, negative: rales, rhonchi, wheezing - Cardiovascular Rhythm: regular Heart Sounds: Present: S1 & S2 - Extremities Extremities: no ischemia, No edema - Abdominal General gastrointestinal: Present: soft, non-tender, non-distended, normal bowel sounds - Integumentary Integumentary: Present: clear, warm - Musculoskeletal Musculoskeletal: strength equal bilaterally - Psychiatric Psychiatric: cooperative, other (Confused at times) - Neurologic Neurologic: moves all extremities Plan Activity: advance as tolerated, fall precautions Diet: other (Mechanical soft diet advance as tolerated) Additional Instructions: Fall precautions. Advised plenty of oral fluids. Patient has chronic constipation, needs stool softeners frequently. If patient has worsening symptoms contact MD or send to emergency room as needed Follow up with: CHAITANYA ARNETT MD [Primary Care Provider] - 3-5 Days KENA NORWOOD MD [Staff Physician] - 7 Days Prescriptions: amLODIPine 10 mg PO QDAY #30 tablet Docusate Sodium [Colace ORAL LIQ] 100 mg PO BID 30 Days #1 bottle carvediloL [Coreg] 6.25 mg PO BID@0800,1700 #60 tablet bisacodyL [Dulcolax suppos] 10 mg OK QDAY #30 supp.rect Magnesium Hydroxide [Milk of Magnesia] 30 ml PO QDAY PRN 30 Days #1 bottle PRN Reason: Constipation Pantoprazole [Protonix TAB] 40 mg PO DAILY #30 tablet
[2021-03-08] MEDS: PANTOPRAZOLE 40 MG TAB PO SCH (10:28)
[2021-03-08] MEDS: MAGNESIUM HYDROXIDE (MOM) ORAL LIQD UDC PO SCH (10:37)
[2021-03-08] MEDS: DOCUSATE SODIUM 100 MG/10 ML ORAL LIQD PO SCH (10:39)
[2021-03-08] MEDS: amLODIPine 10 MG TAB PO SCH (10:39)
[2021-03-08] MEDS: carvediloL 6.25 MG TAB PO SCH (10:39)
== END 2021-03-08 15:00 | disposition home or self-care (01) | DRG 388 ==
LOC: ED 14:15 → 3A 16:46 → OBSVTOIN 03-01 11:05
PROVIDERS: ADMIT Internal Medicine; ATTEND Internal Medicine
DX: K56.41 Fecal impaction (principal); N17.0 Acute kidney failure with tubular necrosis; K62.5 Hemorrhage of anus and rectum; N18.4 Chronic kidney disease, stage 4 (severe); E87.0 Hyperosmolality and hypernatremia; E87.6 Hypokalemia; R33.9 Retention of urine, unspecified; G30.9 Alzheimer's disease, unspecified; D64.9 Anemia, unspecified; E83.39 Other disorders of phosphorus metabolism; F01.50 Vascular dementia, unspecified severity, without behavioral disturbance, psychotic disturbance, mood disturbance, and anxiety; I12.9 Hypertensive chronic kidney disease with stage 1 through stage 4 chronic kidney disease, or unspecified chronic kidney disease; K57.30 Diverticulosis of large intestine without perforation or abscess without bleeding; Z82.49 Family history of ischemic heart disease and other diseases of the circulatory system; Z79.899 Other long term (current) drug therapy
CPT/HCPCS: 36415; 74022; 74176; 74283; 76770; 80048; 80053; 80076; 81001; 83036; 83690; 83735; 84100; 84132; 85014; 85018; 85025; 93005; G0378; C9113; J1644; J2060; J2270; J3480; J7030; J7040; J7042; J7070; Q9963